=== PATIENT | male | born 1945 | race Hispanic/Latino ===

== ENCOUNTER 2017-11-02 11:19 | Inpatient (IN) | payer MEDICARE ==
--- NOTE | 2017-11-02 11:27 | EDPD ---
HPI Stroke - General Time Seen by Provider: 11/02/17 11:23 Historian: EMS - History of Present Illness Narrative History of Present Illness (Free Text): 11/02/17 11:20 A 72 year old male whose past medical history includes COPD, bipolar disorder, and EtOH abuse, is brought in by EMS and presents to the emergency department for possible CVA. Patient was last seen in normal state of health at approximately 09:30. Prior to arrival, patient's daughter had given him medications and later found him on the laundry room floor yelling for help. EMS states noticing patient experiencing right side gaze, right facial droop, and complete left side weakness. Noticed also patient was communicating in slurred speech. O2 SATs in the field were 89-90. Upon arrival here to the ER, patient was seen immediately and evaluated by me. PMD: Dr. Samy Herrera rTPA Inclusion/Exclusion - Refusal of Treatment Patient Refused Treatment: No - Inclusion Criteria for Altepase Patient is 18 years or Older: Yes The Clinical Diagnosis of Ischemic Stroke That is Causing a Potentially Disabling Neurological Deficit: Yes Time of Onset is Well Established to be Less Than 270 Minute Before Treatment Would Begin: Yes Risk/Benefit Discussed With Patient/Family Member Present: Yes - Exclusion Criteria for Altepase Uncontrolled Hypertension at Time of Treatment (Systolic BP above 185 or Diastolic BP above 110 mmHg): No Past Medical History - Provider Review Nursing Documentation Reviewed: Yes - Tetanus Immunization Tetanus Immunization: Unknown - Cardiac Hx Hypertension: Yes - Pulmonary Hx Respiratory Disorders: Yes - Neurological Hx Seizures: Yes - Hematological/Oncological Hx Cancer: Yes (lung) - Musculoskeletal/Rheumatological Hx Falls: Yes - Gastrointestinal Hx Gastrointestinal Disorders: No - Genitourinary/Gynecological Hx Reproductive Disorders: No - Psychiatric Hx Bipolar Disorder: Yes Hx Depression: No Hx Emotional Abuse: No Hx Physical Abuse: No Hx Substance Use: (UNKNOWN) Other/Comment: SMOKING HISTORY - Suicidal Assessment Feels Threatened In Home Enviroment: No Family/Social History - Family/Social History Family History: Non-Contributory Allergies/Home Meds Allergies/Adverse Reactions: Allergies No Known Allergies Allergy (Verified 11/28/12 14:08) Home Medications: Home Meds Medication Instructions Recorded Confirmed Gabapentin [Neurontin] 600 mg PO BID 11/02/17 11/02/17 LORazepam [Ativan] 1 mg PO HS 11/02/17 11/02/17 Quetiapine Fumarate [Seroquel] 100 mg PO HS 11/02/17 11/02/17 traZODone [trazodone Hydrochloride] 150 mg PO HS 11/02/17 11/02/17 ED Stroke Physical Exam Vital Signs Reviewed: Yes Temperature: Afebrile Blood Pressure: Hypertensive Pulse: Regular Respiratory Rate: Tachypneic Appearance: Positive for: Ill-Appearing, Uncomfortable Pain Distress: None Mental Status: No: Alert and Oriented X 3 (alert and oriented to person) - Systems Exam Head: Present: Atraumatic, Normocephalic Pupils: Present: PERRL. No: Pinpoint Extroacular Muscles: Present: EOMI, Gaze Palsy (right) Conjunctiva: Present: Normal Ears: Present: Normal, NORMAL TM Mouth: Present: Moist Mucous Membranes Pharnyx: Present: Normal Nose (External): Present: Atraumatic Nose (Internal): Present: Normal Inspection Neck: Present: Normal Range of Motion. No: MIDLINE TENDERNESS Respiratory/Chest: Present: Good Air Exchange, Respiratory Distress, Accessory Muscle Use, Wheezes (b/l) Cardiovascular: Present: Regular Rate and Rhythm, Normal S1, S2. No: Murmurs Abdomen: Present: Normal Bowel Sounds. No: Tenderness, Distention, Peritoneal Signs Back: Present: Normal Inspection Upper Extremity: Present: Normal Inspection, NORMAL PULSES. No: Edema Lower Extremity: Present: Normal Inspection, NORMAL PULSES, Other (patient is able to raise left lower leg, however drops it down immediately). No: Edema Neurologic: Present: Normal Sensory Function, Facial Droop (right-side), Dysmetric Finger to Nose (left), Dysmetric Heel to Chin (left). No: GCS=15, CN II-XII Intact, Speech Normal (slurred speech), Motor Func Grossly Intact (left upper 0/5; left lower 4/5) Skin: Present: Warm Psychiatric: Present: Alert Medical Decision Making ED Course and Treatment: 11/02/17 11:24 Impression: 72 year old male brought in by EMS for possible CVA. Physical exam shows patient is alert and oriented x 1 (person), right-side facial droop, right -side gaze, complete right-sided weakness, pupils equally reactive, 0/5 muscle strength to upper extremities Differential Diagnoses: CVA; Respiratory Distress r/o COPD vs CHF Plan: -- EKG -- Head CT -- Head/Neck CTA -- Chest X-Ray -- Stroke Team Consult -- Alteplase 62 mg -- Alteplase 7 mg -- IV Fluids -- Labs Progress Notes: 11/02/17 11:[address] Mar, whom recommends Head CT and Head/Neck CTA. tPA ordered immediately, and currently awaiting CT results. 11/02/17 11:[address] shows no bleed, no intracranial hemorrhage. 11/02/2017 12:02 Chest X-Ray IMPRESSION: There is a diffuse interstitial infiltrate. This could be secondary to CHF. There is also mid vascular congestion. Dictator: Oskar Rodriguez MD 11/02/2017 11:[address] IMPRESSION: No acute intracranial hemorrhage. Mild chronic white matter with scattered subcortical and bilateral cerebellar lacunar type infarcts. Note that the possibility of a small hyperacute infarct cannot be excluded on this study. Moderate generalized volume loss. Dictator: Jey Salgado DO 11/02/2017 12:10 Head/Neck CTA FINDINGS: There are partially calcified atherosclerotic plaque changes seen along the transverse portion of the aortic arch at and extending into the origins of the great vessels. Significant stenosis of the origin left common carotid artery. There is also plaque seen along the origin of the right subclavian artery which also results in mild mild-moderate narrowing. . Left common carotid artery is patent. Partially calcified atherosclerotic plaque seen at the bifurcation which also appears resulting [id number] narrowing estimated at approximately 40 %. . Minor partially calcified plaque right carotid bifurcation and proximal margin of the right internal carotid artery with estimated approximately 60 % diameter stenosis. There is also a mild partially calcified plaque seen at the petrous/ cavernous sinus junction segments and more distally within the cavernous segments. . The vertebral arteries are patent throughout left-sided which is slightly larger in caliber/ more dominant than the right. There is focal narrowing of the proximal basilar artery. The visualized major branches of the [place] and distal cerebral vessels are patent and symmetric. No evidence of large aneurysm nor vascular malformation. IMPRESSION: Fairly significant stenosis origin left common carotid artery with moderate stenosis of the origin of the right subclavian artery. The stenotic changes both common carotid artery is estimated at approximately 40 percent on the left and 60 percent on the right. There also mild partially calcified plaque changes both carotid siphons. . There is focal stenosis proximal basilar artery. No evidence of large aneurysm nor vascular malformation. Dictator: Jey Salgado DO 11/02/17 12:35 EKG shows NSR at 91 BPM, showing T-Wave Inversions in III, avF; no change from Case discussed with Dr. Juarez, ICU, whom will admit patient to ICU and recommends giving patient Lasix 40 mg. No IVF given. CXR with CHF patter which was reviewed by Dr. Juarez and I. Agreed Lasix for now and no antibiotics. Normal WBC. Case also discussed with Dr. Cole, whom will admit patient under his service and states to consult with Dr. Marrero (territory sales manager) and Dr. Santo ( neurology). 11/02/17 12:[address] Santo, neurologist, whom has been made aware of patient 's current medical condition and plan of treatment. 11/02/17 13:51 On reeval, lungs with less wheezing/rales; better air entry; good RR. BNP elevated. - Critical Care Critical Care Minutes: 60 minutes - Lab Interpretations I have reviewed the lab results: Yes - RAD Interpretation Radiology Orders: 11/02/17 11:24 CTA HEAD/NECK CODE STROKE [CT] Stat HEAD W/O (CODE STROKE) [CT] Stat CHEST PORTABLE [RAD] Stat - Scribe Statement The provider has reviewed the documentation as recorded by the Scribe Angie Hdz Provider Scribe Attestation: All medical record entries made by the Scribe were at my direction and personally dictated by me. I have reviewed the chart and agree that the record accurately reflects my personal performance of the history, physical exam, medical decision making, and the department course for this patient. I have also personally directed, reviewed, and agree with the discharge instructions and disposition. NIHSS Scale ([place]) Time Performed: 11:25 - How Severe is the Stoke Baseline Level of Consciousness: 0=Alert LOC to Questions: 0=Both comments correct LOC to commands: 0=Obeys both correctly Best Gaze: 2=Forced deviation Visual: 1=Partial hemianopia Facial: 2=Partial (lower face paralysis) Motor Arm - Left: 4=No movement Motor Arm - Right: 0=No drift Motor Leg - Left: 4=No movement Motor Leg - Right: 0=No drift Limb Ataxia: 2=Present both Sensory: 2=Severe to total loss Best Language: 1=Mild to moderate aphasia Dysarthia: 1=Mild to moderate slurring Extinction & Inattention (Neglect): 1=Partial neglect (mild josh-attention) Score: 20 Risk Level: Mod/Sev Stroke Risk Disposition/Present on Arrival - Present on Arrival Any Indicators Present on Arrival: No History of DVT/PE: No History of Uncontrolled Diabetes: No Urinary Catheter: No History Surgical Site Infection Following: None - Disposition Have Diagnosis and Disposition been Completed?: Yes Diagnosis: CVA (cerebral vascular accident), CHF (congestive heart failure) Disposition: HOSPITALIZED Disposition Time: 12:09 Patient Plan: Admission, ICU Condition: CRITICAL
[2017-11-02] MEDS ORDERED: Sodium Chloride 0.9% 1,000 ML IV SCH (11:30)
[2017-11-02 11:32] LABS: BASO # 0.06 K/mm3 (0.0-2.0); BASO % 0.5 % (0.0-3.0); EOS # 0.1 (0.0-0.7); EOS % 0.6 % (1.5-5.0); GRAN # 9.74 (1.4-6.5); GRAN % 86.7 % (50.0-68.0); HEMOGLOBIN 16.3 g/dL (14.0-18.0); LYMPH # 0.8 (1.2-3.4); LYMPH % 6.8 % (22.0-35.0); MEAN CELL VOLUME 96.7 fl (80.0-105.0); MEAN CORPUSCULAR HEMOGLOBIN 31.5 pg (25.0-35.0); MEAN CORPUSCULAR HGB CONC 32.5 g/dl (31.0-37.0); MEAN PLATELET VOLUME 9.3 fl (7.0-11.0); MONO # 0.6 (0.1-0.6); MONO % 5.4 % (1.0-6.0); RBC 5.18 10^6/uL (3.5-6.1); RED CELL DISTRIBUTION WIDTH 16.6 % (11.5-14.5); WHITE BLOOD COUNT 11.2 10^3/ul (4.5-11.0)
[2017-11-02 11:43] LABS: ALB/GLOB RATIO 1.1 (1.1-1.8); ALBUMIN 4.1 g/dL (3.0-4.8); ALT/SGPT 20 U/L (7-56); AST/SGOT 26 U/L (17-59); BLOOD UREA NITROGEN 14 mg/dL (7-21); CALCIUM 7.3 mg/dL (8.4-10.5); GFR AFRICAN-AMERICAN > 60; GFR NON-AFRICAN AMERICAN 55; HDL CHOLESTEROL 36 mg/dL (29-60)
[2017-11-02] MEDS: Albuterol-Ipratrop 3 mg / 0.5 (3 ml) UD IH SCH ×3 (11:45→12:29)
--- NOTE | 2017-11-02 11:46 | CT ---
PROCEDURE: CT HEAD WITHOUT CONTRAST. HISTORY: Code Stroke COMPARISON: Comparison made with CT scan brain dated 11/28/2012 TECHNIQUE: Axial computed tomography images were obtained through the head/brain without intravenous contrast. Radiation dose: Total exam DLP = 934.44 mGy-cm. This CT exam was performed using one or more of the following dose reduction techniques: Automated exposure control, adjustment of the mA and/or kV according to patient size, and/or use of iterative reconstruction technique. FINDINGS: HEMORRHAGE: No intracranial hemorrhage. BRAIN: Mild diffuse/ confluent chronic periventricular white matter ischemic changes are felt to be present. Additionally, there are a few scattered chronic appearing subcortical lacunar type infarct changes as well. . Probable tiny bilateral cerebellar chronic lacunar type infarcts. . Note that the possibility of a small hyperacute infarct cannot be excluded on this exam Moderate generalized volume loss Mild vascular calcifications both carotid siphons. VENTRICLES: No obstructive hydrocephalus. CALVARIUM: No acute calvarial fractures. . There appears to be a chronic right orbital floor fracture deformity. PARANASAL SINUSES: Minor mucosal thickening seen within the ethmoid air complex extending superiorly into the inferior margin of the frontal sinus. There is also minor mucosal thickening right maxillary antrum Changes. MASTOID AIR CELLS: Unremarkable as visualized. No inflammatory changes. OTHER FINDINGS: None. IMPRESSION: No acute intracranial hemorrhage. Mild chronic white matter with scattered subcortical and bilateral cerebellar lacunar type infarcts. Note that the possibility of a small hyperacute infarct cannot be excluded on this study. Moderate generalized volume loss.
[2017-11-02 11:48] LABS: INR 1.17 (0.93-1.08); PARTIAL THROMBOPLASTIN TIME 27.5 Seconds (25.1-36.5); PROTHROMBIN TIME 13.5 SECONDS (9.4-12.5)
[2017-11-02 11:54] LABS: LDL CHOLESTEROL 116 mg/dL (0-129)
--- NOTE | 2017-11-02 12:04 | RAD ---
PROCEDURE: CHEST RADIOGRAPH, 1 VIEW HISTORY: Code Stroke COMPARISON: 11/28/2012 FINDINGS: LUNGS: There is a diffuse interstitial infiltrate. This could be secondary to CHF. There is also mild vascular congestion PLEURA: No pneumothorax or pleural fluid seen. CARDIOVASCULAR: Normal. OSSEOUS STRUCTURES: No significant abnormalities. VISUALIZED UPPER ABDOMEN: Normal. OTHER FINDINGS: None. IMPRESSION: There is a diffuse interstitial infiltrate. This could be secondary to CHF. There is also mild vascular congestion
[2017-11-02 12:06] LABS: TROPONIN I 0.22 ng/mL
--- NOTE | 2017-11-02 12:08 | CP.PCM.CON ---
History of Present Illness - History of Present Illness History of Present Illness: PGY2 Neuro Consult note for Dr. Mar Reason for consult: acute CVA Please note history as per daughter Vianey Broussard 72yo male PMHx lung ca s/p lobectomy COPD, bipolar, tobacco use, alcoholism, TIA presents for AMS since this AM. Patient's daughter reports she last saw him at baseline around 8:30am when she gave him his breakfast and medications. After that around 10-10:30am patient's daughter heard him calling for her and she found him in the laundry room, face down, with his left arm underneath him and his right arm in front of him. Patient was able to talk and answering questions appropriately at that time. He knew who his daughter was and who he was and was asking his daughter to help him get to the couch. He was unable to walk but had no other complaints. Patient's daughter states that she felt his color was nava and immediately called EMS and patient was [facility] [facility]. PMHx: lung ca s/p lobectomy, COPD, bipolar, tobacco use, alcoholism, TIA PSurgHx: lobectomy [daughter unsure which lung] Meds: pls see chart- patient's daughter reports he is compliant ALL: NKDA SocHx: quit tobacco 8 years ago- used to smoke 1.5-2ppd since he was in his teens; used to drink EtOH heavily for 30 years and quit 8 years ago. Son 2 weeks ago suddenly [cause unknown awaiting autopsy] and his of breast ca in 2005. Patient lives in the same building as his daughter. FamHx: elan any hx of CVA, [place], cancer in family PMD: Dr. Herrera Review of Systems - Review of Systems Systems not reviewed;Unavailable: Acuity of Condition (history as per daughter at bedside) Past Patient History - Infectious Disease Hx of Infectious Diseases: None - Tetanus Immunizations Tetanus Immunization: Unknown - Past Social History Smoking Status: Former Smoker - CARDIAC Hx Hypertension: Yes - PULMONARY Hx Respiratory Disorders: Yes - NEUROLOGICAL Hx Seizures: Yes - HEMATOLOGICAL/ONCOLOGICAL Hx Cancer: Yes (lung) - MUSCULOSKELETAL/RHEUMATOLOGICAL Hx Falls: Yes - GASTROINTESTINAL Hx Gastrointestinal Disorders: No - GENITOURINARY/GYNECOLOGICAL Hx Reproductive Disorders: No - PSYCHIATRIC Hx Bipolar Disorder: Yes Hx Depression: No Hx Emotional Abuse: No Hx Physical Abuse: No Hx Substance Use: (UNKNOWN) Other/Comment: SMOKING HISTORY - SURGICAL HISTORY Other/Comment: lobectomy ,lung ca - ANESTHESIA Hx Anesthesia Reactions: No Meds Allergies/Adverse Reactions: Allergies Allergy/AdvReac Type Severity Reaction Status Date / Time No Known Allergies Allergy Verified 11/28/12 14:08 - Medications Medications: Current Medications Albuterol/Ipratropium (Duoneb 3 Mg/0.5 Mg (3 Ml) Ud) 3 ml IH Q15M MARCELLA Stop: 11/02/17 12:16 Sodium Chloride (Sodium Chloride 0.9%) 1,000 mls @ 100 mls/hr IV .Q10H MARCELLA Physical Exam - Constitutional Appears: In Acute Distress - Head Exam Head Exam: ATRAUMATIC, NORMAL INSPECTION, NORMOCEPHALIC - Eye Exam Eye Exam: PERRL. absent: Conjunctival injection, Scleral icterus Pupil Exam: NORMAL ACCOMODATION, PERRL - ENT Exam ENT Exam: Mucous Membranes Dry - Respiratory Exam Respiratory Exam: Wheezes, NORMAL BREATHING PATTERN. absent: Accessory Muscle Use - Cardiovascular Exam Cardiovascular Exam: REGULAR RHYTHM, +S1, +S2 - GI/Abdominal Exam GI & Abdominal Exam: Normal Bowel Sounds, Soft - Extremities Exam Extremities exam: Positive for: normal capillary refill, normal inspection, pedal pulses present. Negative for: pedal edema - Neurological Exam Neurological exam: Alert Additional comments: L facial droop LUE and LLE weakness - Expanded Neurological Exam Expanded Neurological exam: Protecting the Airway Patient oriented to: person, place, time Speech: Slurred Speech Cranial nerves: Facial Sensation: Normal, Nystagmus: Normal Coma Scale Eye Opening: SPONTANEOUS Coma Scale Motor Response: OBEYS COMMANDS Coma Scale Verbal: Oriented Coma Scale Total: 15 - Skin Skin Exam: Dry, Intact, Normal Color, Warm Results - Vital Signs Recent Vital Signs: Last Vital Signs Temp 98.5 F 11/02/17 12:00 Pulse 87 11/02/17 12:00 Resp 18 11/02/17 12:00 BP 146/82 11/02/17 12:00 Pulse Ox 91 L 11/02/17 12:00 - Labs Result Diagrams: 11/02/17 11:25 11/02/17 11:25 Labs: Laboratory Results - last 24 hr 11/02/17 11/02/1718 11:25 11:25 11:25 WBC 11.2 H RBC 5.18 Hgb 16.3 Hct 50.1 MCV 96.7 MCH 31.5 MCHC 32.5 RDW 16.6 H Plt Count 252 MPV 9.3 Gran % 86.7 H Lymph % (Auto) 6.8 L Leake % (Auto) 5.4 Eos % (Auto) 0.6 L Baso % (Auto) 0.5 Gran # 9.74 H Lymph # (Auto) 0.8 L Leake # (Auto) 0.6 Eos # (Auto) 0.1 Baso # (Auto) 0.06 PT 13.5 H INR 1.17 H APTT 27.5 Sodium 141 Potassium 4.1 Chloride 101 Carbon Dioxide 23 Anion Gap 22 H BUN 14 Creatinine 1.3 Est GFR ( Amer) > 60 Est GFR (Non-Af Amer) 55 Random Glucose 169 H Calcium 7.3 L Total Bilirubin 0.7 AST 26 ALT 20 Alkaline Phosphatase 126 Troponin I 0.22 H* Total Protein 7.9 Albumin 4.1 Globulin 3.8 Albumin/Globulin Ratio 1.1 Triglycerides 113 Cholesterol 171 LDL Cholesterol Direct 116 HDL Cholesterol 36 BBK History Checked 11/02/17 11:25 WBC RBC Hgb Hct MCV MCH MCHC RDW Plt Count MPV Gran % Lymph % (Auto) Leake % (Auto) Eos % (Auto) Baso % (Auto) Gran # Lymph # (Auto) Leake # (Auto) Eos # (Auto) Baso # (Auto) PT INR APTT Sodium Potassium Chloride Carbon Dioxide Anion Gap BUN Creatinine Est GFR ( Amer) Est GFR (Non-Af Amer) Random Glucose Calcium Total Bilirubin AST ALT Alkaline Phosphatase Troponin I Total Protein Albumin Globulin Albumin/Globulin Ratio Triglycerides Cholesterol LDL Cholesterol Direct HDL Cholesterol BBK History Checked No verified bt Assessment & Plan - Assessment and Plan (Free Text) Assessment: 72yo male PMHx COPD, bipolar, tobacco use, alcoholism, TIA presents for AMS since this AM. Code stroke called in the ED and patient had NIHSS 12. Head CT showed no acute hemorrhage and patient was started on tPA. Plan: -Admit patient to ICU -Monitor closely for any signs of bleeding and no lab draws for 24 hours -Maintain BP <185/105mmHg and check BP every 15 minutes -repeat Head CT in 24hours -MRI/MRA brain in AM -HOLD ASA -Lipitor -Head CT: No acute intracranial hemorrhage. Mild chronic white matter with scattered subcortical and bilateral cerebellar lacunar type infarcts. Note that the possibility of a small hyperacute infarct cannot be excluded on this study. Moderate generalized volume loss. -CTA head/neck: Fairly significant stenosis origin left common carotid artery with moderate stenosis of the origin of the right subclavian artery. The stenotic changes both common carotid artery is estimated at approximately 40 percent on the left and 60 percent on the right. There also mild partially calcified plaque changes both carotid siphons. . There is focal stenosis proximal basilar artery. No evidence of large aneurysm nor vascular malformation. -Aspiration precautions -HoB above 30 degrees -Neuro check -NPO -Speech/Swallow eval -PT/OT -GI ppx and SCDs Discussed with Dr. Isabela Stephenson PGY2
--- NOTE | 2017-11-02 12:12 | CT ---
PROCEDURE: CT Angiography of the neck and brain dated 11/02/2017 HISTORY: CVA COMPARISON: Comparison made with concurrent noncontrast CT scan brain TECHNIQUE: Contiguous helical/transaxial images of the neck were obtained from the level of the skull-base to the superior mediastinum in the arteriographic phase of enhancement. Coronal and sagittal reformats or also generated. IV contrast dose: Omnipaque 350 contrast material. Radiation Dose - DLP: 528.67 mGy-cm This CT exam was performed using one or more of the following dose reduction techniques: Automated exposure control, adjustment of the mA and/or kV according to patient size, and/or use of iterative reconstruction technique. . Note that study is somewhat limited due to motion artifact which partially obscures on images at the level of the bifurcations. Streak artifact arising from dental amalgam as well as other cardiac monitoring hardware also partially obscuring detail. FINDINGS: There are partially calcified atherosclerotic plaque changes seen along the transverse portion of the aortic arch at and extending into the origins of the great vessels. Significant stenosis of the origin left common carotid artery. There is also plaque seen along the origin of the right subclavian artery which also results in mild mild-moderate narrowing. . Left common carotid artery is patent. Partially calcified atherosclerotic plaque seen at the bifurcation which also appears resulting [id number] narrowing estimated at approximately 40 %. . Minor partially calcified plaque right carotid bifurcation and proximal margin of the right internal carotid artery with estimated approximately 60 % diameter stenosis. There is also a mild partially calcified plaque seen at the petrous/ cavernous sinus junction segments and more distally within the cavernous segments. . The vertebral arteries are patent throughout left-sided which is slightly larger in caliber/ more dominant than the right. There is focal narrowing of the proximal basilar artery. The visualized major branches of the [place] and distal cerebral vessels are patent and symmetric. No evidence of large aneurysm nor vascular malformation. IMPRESSION: Fairly significant stenosis origin left common carotid artery with moderate stenosis of the origin of the right subclavian artery. The stenotic changes both common carotid artery is estimated at approximately 40 percent on the left and 60 percent on the right. There also mild partially calcified plaque changes both carotid siphons. . There is focal stenosis proximal basilar artery. No evidence of large aneurysm nor vascular malformation.
--- NOTE | 2017-11-02 12:38 | CP.PCM.CON ---
History of Present Illness - History of Present Illness History of Present Illness: MICU Consult Note Patient is 72yo male with PMHx of Lung Ca s/p Lobectomy, etoh abuse, former smoker, HTN, midl dementia, presents from after being found down on the floor. History provided by daughter, Vianey Broussard, who is at bedside. As per the daughter, patient was downstairs doing his laundry, when yelled for help and was found down on the floor. Brought in by EMS found to have facial droop and LUE/LLE weakness, given tPA. Currently afebrile, HD stable, in mild resp distress, sat 94% on 2LNC. Neurology consulted and at bedside PMHx as above PSHx as above Meds as per EMR ROS as above FHx NC Social former etoh abuse, former smoker, retired Review of Systems - Review of Systems Review of Systems: as per HPI Past Patient History - Infectious Disease Hx of Infectious Diseases: None - Tetanus Immunizations Tetanus Immunization: Unknown - Past Social History Smoking Status: Former Smoker - CARDIAC Hx Hypertension: Yes - PULMONARY Hx Respiratory Disorders: Yes - NEUROLOGICAL Hx Seizures: Yes - HEMATOLOGICAL/ONCOLOGICAL Hx Cancer: Yes (lung) - MUSCULOSKELETAL/RHEUMATOLOGICAL Hx Falls: Yes - GASTROINTESTINAL Hx Gastrointestinal Disorders: No - GENITOURINARY/GYNECOLOGICAL Hx Reproductive Disorders: No - PSYCHIATRIC Hx Bipolar Disorder: Yes Hx Depression: No Hx Emotional Abuse: No Hx Physical Abuse: No Hx Substance Use: (UNKNOWN) Other/Comment: SMOKING HISTORY - SURGICAL HISTORY Other/Comment: lobectomy ,lung ca - ANESTHESIA Hx Anesthesia Reactions: No Meds Allergies/Adverse Reactions: Allergies Allergy/AdvReac Type Severity Reaction Status Date / Time No Known Allergies Allergy Verified 11/28/12 14:08 - Medications Medications: Current Medications Sodium Chloride (Sodium Chloride 0.9%) 1,000 mls @ 100 mls/hr IV .Q10H MARCELLA Physical Exam - Constitutional Appears: Non-toxic - Eye Exam Eye Exam: Normal appearance - ENT Exam ENT Exam: Mucous Membranes Moist - Respiratory Exam Respiratory Exam: Rales, Wheezes, NORMAL BREATHING PATTERN - Cardiovascular Exam Cardiovascular Exam: REGULAR RHYTHM, +S1, +S2 - GI/Abdominal Exam GI & Abdominal Exam: Normal Bowel Sounds, Soft - Extremities Exam Extremities exam: Positive for: pedal edema - Neurological Exam Neurological exam: Alert Additional comments: RUE/RLE 4/5 LUE/LLE 3/5, facial asymetry Results - Vital Signs Recent Vital Signs: Last Vital Signs Temp 98.5 F 11/02/17 12:00 Pulse 88 11/02/17 12:15 Resp 18 11/02/17 12:15 BP 154/81 H 11/02/17 12:15 Pulse Ox 91 L 11/02/17 12:00 - Labs Result Diagrams: 11/02/17 11:25 11/02/17 11:25 Labs: Laboratory Results - last 24 hr 11/02/17 11/02/17 11/02/17 11:25 11:25 11:25 WBC 11.2 H RBC 5.18 Hgb 16.3 Hct 50.1 MCV 96.7 MCH 31.5 MCHC 32.5 RDW 16.6 H Plt Count 252 MPV 9.3 Gran % 86.7 H Lymph % (Auto) 6.8 L [place] % (Auto) 5.4 Eos % (Auto) 0.6 L Baso % (Auto) 0.5 Gran # 9.74 H Lymph # (Auto) 0.8 L [place] # (Auto) 0.6 Eos # (Auto) 0.1 Baso # (Auto) 0.06 PT 13.5 H INR 1.17 H APTT 27.5 Sodium 141 Potassium 4.1 Chloride 101 Carbon Dioxide 23 Anion Gap 22 H BUN 14 Creatinine 1.3 Est GFR ( Amer) > 60 Est GFR (Non-Af Amer) 55 Random Glucose 169 H Calcium 7.3 L Total Bilirubin 0.7 AST 26 ALT 20 Alkaline Phosphatase 126 Troponin I 0.22 H* Total Protein 7.9 Albumin 4.1 Globulin 3.8 Albumin/Globulin Ratio 1.1 Triglycerides 113 Cholesterol 171 LDL Cholesterol Direct 116 HDL Cholesterol 36 BBK History Checked 11/02/17 11:25 WBC RBC Hgb Hct MCV MCH MCHC RDW Plt Count MPV Gran % Lymph % (Auto) [place] % (Auto) Eos % (Auto) Baso % (Auto) Gran # Lymph # (Auto) [place] # (Auto) Eos # (Auto) Baso # (Auto) PT INR APTT Sodium Potassium Chloride Carbon Dioxide Anion Gap BUN Creatinine Est GFR ( Amer) Est GFR (Non-Af Amer) Random Glucose Calcium Total Bilirubin AST ALT Alkaline Phosphatase Troponin I Total Protein Albumin Globulin Albumin/Globulin Ratio Triglycerides Cholesterol LDL Cholesterol Direct HDL Cholesterol BBK History Checked No verified bt - Imaging and Cardiology Chest x-ray Status: Image reviewed by me, Report reviewed by me Assessment & Plan - Assessment and Plan (Free Text) Assessment: 72yo male a/w acute CVA, receiving tPA Acute CVA SOB COPD CHF exacerbation - currently afebrile, HD stable, in mild resp distress, sat 94% on 2LNC, receiving tPA - CT head negative for acute pathology - CXR with diffuse interstial markings likely component of CHF RECOMMEND: - supp o2 as needed, goal sat 90% - duonebs q4hr PRN - Pulmicort 0.25mg BID - Solumedrol 40mg IV q8hr - Lasix 40mg IV BID - ECHO - Cardiology eval - NPO - no lab draws for 24h - HOLD ASA - Statin - follow up neuro - MRI/MRA - monitor - control - GI ppx - DVT ppx, SCDs - Admit to MICU Critical care time 35 minutes
--- NOTE | 2017-11-02 15:52 | RAD ---
PROCEDURE: Radiographs of the Left Forearm HISTORY: fall COMPARISON: None available. TECHNIQUE: Frontal and lateral views obtained. FINDINGS: BONES: No fracture or destructive lesion. JOINT SPACES: Unremarkable. OTHER FINDINGS: None. IMPRESSION: Unremarkable radiographs of the left forearm.
--- NOTE | 2017-11-02 15:59 | RAD ---
PROCEDURE: Left Hand Radiographs. HISTORY: fall COMPARISON: None. FINDINGS: BONES: There is a minimally displaced fracture of the 5th proximal phalanx JOINTS: Normal. No osteoarthritic changes. SOFT TISSUES: Normal. OTHER FINDINGS: None. IMPRESSION: There is a minimally displaced fracture of the 5th proximal phalanx
[2017-11-02] MEDS: Nystatin 100,000 Units/gm Topical Pow(15 gm) TOP SCH (16:31)
--- NOTE | 2017-11-02 19:05 | CP.PCM.PCO ---
Physician Communication Note - Physician Communication Note Physician Communication Note: Dr. Landrum unable to accept the patient, no referral has been made.
--- NOTE | 2017-11-02 19:11 | CON ---
DATE: 11/02/2017 NEUROLOGY CONSULT CHIEF COMPLAINT: Left-sided weakness. HISTORY OF PRESENT ILLNESS: This is a 72-year-old man with history of lung cancer, status post lobectomy, EtOH abuse, former smoker, hypertension, mild cognitive impairment, who has been found down on the floor. History was provided by his daughter, Vianey who was at bedside. Apparently, the patient was doing laundry downstairs when he yelled down the floor. He was found to have left facial droop and left upper and lower extremity weakness. He was brought to the ER. He was within the requirements of tPA. His CT of the head showed no acute intracranial abnormality. He was given tPA without any contraindications. His CT angio of the head was also done, which showed a significant stenosis on the marginal left common carotid with moderate stenosis of the right subclavian artery, stenotic changes in both common carotids estimated 40% on the left and 60% on the right and focal stenosis on the proximal basilar artery. No evidence of any large aneurysm or vascular malformation. His MRI of the brain is pending. Currently, he is in the ICU, on BiPAP, has elevated BNP of more than 6000 and positive troponin, could be secondary to NSTEMI versus acute infarct. He is following simple commands. His left upper extremity is weaker than his left lower. Toes are upgoing bilaterally. Sensory exam, withdraws to localized and noxious stimulus. PAST MEDICAL HISTORY: History of lung cancer, status post lobectomy, hypertension, and cognitive impairment. PAST SURGICAL HISTORY: Status post lobectomy for lung CA. MEDICATIONS: Reviewed by nurse per reconciliation sheet. REVIEW OF SYSTEMS: Fourteen-point review of systems is negative except per the HPI. FAMILY HISTORY: Noncontributory. SOCIAL HISTORY: Former EtOH abuse, former smoker, retired. LABORATORY DATA: Sodium is 141, potassium 4.1, chloride 101, carbon dioxide 23. BUN of 14, creatinine 1.3. Random glucose 169. A1c 6.4. Troponin is 0.22. BNP is 6520. PHYSICAL EXAMINATION: VITAL SIGNS: Temperature afebrile, pulse rate is 75, blood pressure 142/75, respiratory rate of 19, oxygen saturation 91% via nasal cannula. GENERAL: Patient is lethargic . HEENT: Head is atraumatic, normocephalic. PERRLA. Extraocular muscles intact. NECK: Supple. No JVD. No adenopathy noted. LUNGS: Clear to auscultation. No adventitious sounds. HEART: S1, S2. Normal rate and rhythm. No murmurs, rubs, or gallops. ABDOMEN: Soft, nontender, nondistended. Bowel sounds are present. EXTREMITIES: No clubbing, no cyanosis. Peripheral pulses are 2+ felt bilaterally. NEUROLOGIC: The patient is drowsy, but alert and oriented to person, follow simple commands. Speech is slightly dysarthric. Cranial nerves II through XII intact except for mild left facial droop. Motor exam: Left upper extremity 4+/5 and left lower extremity 5-/5. In terms of strength, right side is intact. Toes are upgoing bilaterally. Sensory exam: Light touch, pinprick, proprioception, and vibration intact. DTRs are 2+ throughout. Withdraws to localized and noxious stimulus. Coordination: [id number] intact on the right, mild difficulty with left upper extremity weakness. DTRs are 2+ throughout, 1 at ankles. Gait is deferred for now. ASSESSMENT AND PLAN: This is a 72-year-old man with past medical history of lung cancer, status post lobectomy, hypertension, dyslipidemia, history of ethyl alcohol abuse and former smoker, who comes in with acute onset of mild left facial droop, left-sided weakness with status post tPA due to that he was in the time window without any contraindications. His CT head showed no acute intracranial abnormalities, just chronic ischemic changes and CT angio of the head and neck showed overall stenotic change in both common carotids, 40% on the left and 60% on the right with some more focal stenosis of the proximal basilar artery. No evidence of any larger aneurysm or vascular malformation. He also has elevated BNP and congestive heart failure exacerbation. His cerebrovascular accident could be secondary to diffuse atherosclerotic disease. At this time recommend: 1. Since he is status post tPA, wait 24 hours before introducing antiplatelet medications. 2. MRI of the brain to assess the location of the infarct. 3. A 2D echo. 4. PT and OT evaluation, speech therapy. 5. Acute progressive hypertension for 24 hours and after can reduce to a goal of systolic blood pressure of 130s to 140s and diastolic of 70s to 80s, and continue current present medical management. We will likely need rehab evaluation. Ty Santo MD
[2017-11-02 19:43] VITALS: BMI 27.4
[2017-11-02] MEDS ORDERED: Pneumococcal 23-Valent Vaccine IM ONE (19:43)
[2017-11-02] MEDS: MethylPREDNISolone 40 mg Vial IVP SCH (21:08)
--- NOTE | 2017-11-03 07:08 | CP.PCM.PN ---
Objective - Vital Signs/Intake and Output Vital Signs (last 24 hours): Temp Pulse Resp BP Pulse Ox 99.2 F 69 17 149/81 95 11/02/17 23:28 11/03/17 06:15 11/03/17 06:15 11/03/17 06:00 11/03/17 06:15 Intake and Output: 11/03/17 11/03/17 06:59 18:59 Intake Total 0 Output Total 1300 Balance -1300 - Medications Medications: Current Medications Furosemide (Lasix) 40 mg IVP Q12H MARCELLA Last Admin: 11/02/17 21:09 Dose: 40 mg Methylprednisolone (Solu-Medrol) 40 mg IVP Q12 MARCELLA Last Admin: 11/02/17 21:08 Dose: 40 mg Nystatin (Nystop Topical Powder) 0 gm TOP BID MARCELLA Last Admin: 11/02/17 16:31 Dose: 1 applic - Labs Labs: PT 13.5 SECONDS (9.4-12.5) H 11/02/17 11:25 INR 1.17 (0.93-1.08) H 11/02/17 11:25 APTT 27.5 Seconds (25.1-36.5) 11/02/17 11:25
--- NOTE | 2017-11-03 08:16 | CARD ---
APPROVED REPORT EKG Measurement Heart [id number] <Conclusion> Normal sinus rhythm PRWP V 1 - 6 RVCD LAD STTW changes c/w ischemia
--- NOTE | 2017-11-03 08:22 | PCM.STROKE ---
Interval History Critical Care Time Spent (in minutes): 45 Stroke Date: 11/02/17 Additional history per family/caregiver (name): Vianey [daughter] No other interval changes in current, PMHx, FHx, SocHx, ROS: other than on note by: (Dr. Keyla Stephenson PGY2) - Treatment DVT Prophylaxis: Sequential compression device in place bilaterally - Education Written Stroke Education provided regarding: personal risk factors, stroke warning sign/symptoms, how to activate emergency medical services, need to follow up after discharge Hx Atrial Fibrillation: No Hx Atrial Flutter: No NIHSS Stroke Scale - Date/Time Evaluation Performed Date Performed: 11/03/17 Time Performed: 08:00 When Was NIHSS Performed: Post tPA - How Severe is the Stroke Level of Consciousness: 0=Alert LOC to Questions: 0=Both comments correct LOC to commands: 0=Obeys both correctly Best Gaze: 0=Normal Visual: 0=No visual loss Facial: 2=Partial (lower face paralysis) Motor Arm - Left: 1=Drift noted before 10 sec Motor Arm - Right: 0=No drift Motor Leg - Left: 1=Drift before 5 sec Motor Leg - Right: 0=No drift Limb Ataxia: 1=Present Upper or Lower Sensory: 0=Normal Best Language: 0=No aphasia Dysarthia: 1=Mild to moderate slurring Extinction & Inattention (Neglect): 1=Partial neglect (mild josh-attention) Score: 7 Exam - Vital Sign Vital Signs: Temp Pulse Resp BP Pulse Ox 99.2 F 69 17 149/81 95 11/02/17 23:28 11/03/17 06:15 11/03/17 06:15 11/03/17 06:00 11/03/17 06:15 Constitutional: No distress, Normal appearing Right Pupil: Reactive Left Pupil: Reactive Cardiovascular: Regular rate & rhythm Mental Status: Normal: Orientation (ao x 3) Neuro motor strength exam: Left Upper Extremity: 3, Right Upper Extremity: 4, Left Lower Extremity: 3, Right Lower Extremity: 4 Vascular Risk: Age (ao x 3), Smoking - Data reviewed Laboratory results: Triglycerides 107 mg/dL (35-160) 11/03/17 07:30 Cholesterol 188 mg/dL (130-200) 11/03/17 07:30 LDL Cholesterol Direct 133 mg/dL (0-129) H 11/03/17 07:30 HDL Cholesterol 40 mg/dL (29-60) 11/03/17 07:30 Hemoglobin A1c 6.4 % (4.2-6.5) 11/02/17 11:25 Assessment and Plan - Assessment and Plan (Free Text) Assessment: 72yo male PMHx COPD, bipolar, tobacco use, alcoholism, TIA presents for AMS since this AM. Code stroke called in the ED and patient had NIHSS 12. Head CT showed no acute hemorrhage and patient was started on tPA and transferred to MICU. Plan: -repeat head CT at 21:00 to monitor bleed -Head CT this AM: large hemorrhagic infarct in R frontal lobe -MRI Brain showed large hemorrhagic infarct in the right frontal lobe -Head/Neck MRA showed no evidence of occlusion or high grade stenosis -Echo with bubble study ordered- f/u -Head CT on admission: No acute intracranial hemorrhage. Mild chronic white matter with scattered subcortical and bilateral cerebellar lacunar type infarcts. Note that the possibility of a small hyperacute infarct cannot be excluded on this study. Moderate generalized volume loss. -CTA head/neck on admission: Fairly significant stenosis origin left common carotid artery with moderate stenosis of the origin of the right subclavian artery. The stenotic changes both common carotid artery is estimated at approximately 40 percent on the left and 60 percent on the right. There also mild partially calcified plaque changes both carotid siphons. There is focal stenosis proximal basilar artery. No evidence of large aneurysm nor vascular malformation. -Cardene gtt -Maintain SBP 140-160 due to new hemorrhagic CVA -Aspiration precautions -HoB above 45 degrees -Neuro checks -NPO -Speech/Swallow eval -PT/OT -GI ppx and SCDs -Neurosurgery consult Discussed with Dr. Isabela Stephenson PGY2
[2017-11-03 08:30] LABS: TROPONIN I 0.27 ng/mL
[2017-11-03 08:59] LABS: CK-MB 4.5 ng/mL (0.0-3.6)
--- NOTE | 2017-11-03 09:21 | PN ---
DATE: 11/03/2017 SUBJECTIVE: The patient is seen and examined at the bedside. He is comfortable. He talks full sentences. His night was uneventful. He reports that he is subjectively feeling better in terms of his breathing and in terms of muscle strength in both upper and lower extremity. PHYSICAL EXAMINATION: VITAL SIGNS: Heart rate 69, blood pressure 149/81, respiratory rate 17, oxygen saturation 95% on 2 L nasal cannula. ENT: Head and neck atraumatic. LUNGS: Clear to auscultation bilaterally. HEART: Regular rate and rhythm. S1 and S2 normal. ABDOMEN: Soft, nontender and nondistended. MUSCULOSKELETAL: No C/C/E. NEURO: 5/5 right upper and lower extremity, 3/5 (substantial improvement compared with yesterday), left upper and lower extremities. The patient has substantial asymmetry in his base with flattening of the left nasolabial fold. Inability to frown his left brow. Inability to shrug his left shoulder. Deviation of the tongue to the right. SKIN: Moist. PSYCH: The patient is alert, awake and oriented x3. Normal affect. LABORATORY DATA: WBC 11.2, hemoglobin 16.3, platelet count 252. Sodium 141, potassium 4.1, chloride 101, carbon dioxide 23, BUN 14, creatinine 1.3. Hemoglobin A1c 6.4. Troponin 0.22. ProBNP is 6520. LDL 116, HDL 36. INR 1.17. MEDICATIONS: Lasix 40 mg IV every 12, Solu-Medrol 40 mg IV every 12, nystatin. CT of the head and neck revealed fairly significant stenosis, origin left common carotid artery with moderate stenosis of the origin of the right subclavian artery. The stenotic changes of both common carotid artery are estimated at approximately 40% on the left and 60% on the right. There are also mild partially calcified plaque changes, both carotid siphons. There is a focal stenosis, proximal basilar artery. No evidence of large aneurysm. No vascular malformation. Head CT was showing no acute intracranial hemorrhage. ASSESSMENT AND PLAN: This is a 72-year-old gentleman, who presented with acute right middle cerebral artery stroke, status post tissue plasminogen activator with subsequent substantial improvement. The patient received tissue plasminogen activator and currently in the Intensive Care Unit for post tPA care. We will maintain blood pressure below 180/100. We will maintain euvolemia, euglycemia, normothermia and oxygen saturation more than 90%. Neurology is following the patient as well. The patient will get MRI and MRA of the head and neck today. Echocardiogram, carotid Doppler, swallow evaluation, physical therapy, occupational therapy evaluation will also be done. Once passed the swallow evaluation, the patient will be allowed to eat and drink. However, if he fails swallow evaluation, he will remain n.p.o. We will continue with deep venous thrombosis and gastrointestinal prophylaxis. Aspiration precaution. Head of bed elevated more 35 degrees. ccm time 40 min Shukri Andre MD MTDSkyler
--- NOTE | 2017-11-03 11:15 | MRI ---
PROCEDURE: Magnetic Resonance Angiography Brain HISTORY: CVA s/p tPA COMPARISON: None available. TECHNIQUE: 3D time of flight MR angiography of the intracranial arteries was performed. Rotating maximum intensity projection images were generated. FINDINGS: INTERNAL CAROTID ARTERIES: Flow signal is seen in both internal carotid arteries. ANTERIOR CEREBRAL ARTERIES: Not visible due to motion artifact MIDDLE CEREBRAL ARTERIES: Not visible due to motion artifact POSTERIOR CIRCULATION: Basilar Artery: Unremarkable. ANEURYSM/ VASCULAR MALFORMATIONS: None. OTHER FINDINGS: None. IMPRESSION: Nondiagnostic study due to motion artifact.
[2017-11-03] MEDS: MethylPREDNISolone 40 mg Vial IVP SCH ×2 (11:16→21:22)
--- NOTE | 2017-11-03 11:17 | MRI ---
PROCEDURE: MR angiography of the neck without contrast HISTORY: CVA s/p tPA COMPARISON: TECHNIQUE: MR angiography of the neck was performed using [id number] techniques. FINDINGS: The study is extremely limited by motion artifact. There is no obvious occlusion of the carotid arteries. There is no critical stenosis visualize. The vertebral and basilar arteries are also patent. IMPRESSION: Study limited by motion artifact. No evidence of occlusion or high-grade stenosis
[2017-11-03] MEDS: Nystatin 100,000 Units/gm Topical Pow(15 gm) TOP SCH ×2 (11:18→18:12)
[2017-11-03] MEDS ORDERED: Nicardipine 20 MG/200 ML 20 MG/200 ML BAG IV PRN (11:21)
--- NOTE | 2017-11-03 11:26 | MRI ---
PROCEDURE: MRI BRAIN WITHOUT CONTRAST HISTORY: CVA s/p tPA COMPARISON: None. TECHNIQUE: Multiplanar, multisequence MR images of the brain were obtained without intravenous contrast enhancement. FINDINGS: HEMORRHAGE: There is a large hemorrhagic infarct in the right frontal lobe measuring 35 x 58 mm. The hemorrhage extends to the cortical surface and there is also some associated subarachnoid hemorrhage. There is no midline shift DWI: There is restricted diffusion around the areas of hemorrhage consistent with an acute infarct BRAIN PARENCHYMA: As above there is mass effect with effacement of the sulci on the right but no evidence of midline shift VENTRICLES: Unremarkable. No hydrocephalus. CRANIUM: Unremarkable. ORBITS: Grossly unremarkable. PARANASAL SINUSES/MASTOIDS: Clear VASCULAR SYSTEM: Skull base flow voids intact. OTHER FINDINGS: The findings were called to the ICU. I spoke to Amanda the patient's nurse at 11:15 a.m. IMPRESSION: Large hemorrhagic infarct in the right frontal lobe
--- NOTE | 2017-11-03 11:28 | CT ---
PROCEDURE: CT HEAD WITHOUT CONTRAST. HISTORY: CVA s/p TPA - monitor 24 hrs after tPA COMPARISON: MRI same day TECHNIQUE: Axial computed tomography images were obtained through the head/brain without intravenous contrast. Radiation dose: Total exam DLP = 849 mGy-cm. This CT exam was performed using one or more of the following dose reduction techniques: Automated exposure control, adjustment of the mA and/or kV according to patient size, and/or use of iterative reconstruction technique. FINDINGS: HEMORRHAGE: There is a large hemorrhagic infarct in the right frontal lobe. The hemorrhage extends to the cortical surface and there is a small amount of associated subarachnoid blood which can be seen in the parietal sulci bilaterally. BRAIN: There is mass effect with sulcal effacement but no midline shift. VENTRICLES: Unremarkable. No hydrocephalus. CALVARIUM: Unremarkable. PARANASAL SINUSES: Unremarkable as visualized. No significant inflammatory changes. MASTOID AIR CELLS: Unremarkable as visualized. No inflammatory changes. OTHER FINDINGS: The findings were called to the ICU. I spoke to Amanda the patient's nurse at 11:15 a.m. IMPRESSION: Large hemorrhagic infarct in the right frontal lobe.
--- NOTE | 2017-11-03 11:28 | CP.CCUPN ---
Addendum entered and electronically signed by Berlin Fisher DO 11/03/17 13:18: Discussed case with Dr. Cabrera neurosurgery about hemorrhagic conversion of ischemic stroke s/p tpa. Advised to get repeat head CT tomorrow morning. No intervention at this time. Berlin Fisher D.O. Original Note: <Hieu Veliz - Last Filed: 11/03/17 12:35> CCU Subjective - Physician Review Subjective (Free Text): ICU Progress Note Pt seen and examined at bedside. No acute overnight events. Patients states that he is able to move his extremities better. Patient admits to some pain in his left hand. Pt denied CP, SOB, n/v/d, abdominal pain, fever, chills, S[place], or dizziness. CCU Objective - Vital Signs / Intake & Output Vital Signs (Last 4 hours): Vital Signs Pulse Resp BP Pulse Ox 11/03/17 11:16 171/79 H 11/03/17 09:00 77 11/03/17 08:30 81 18 86 L 11/03/17 08:15 74 14 93 L 11/03/17 08:00 72 19 123/72 89 L 11/03/17 07:45 76 12 92 L 11/03/17 07:30 79 21 92 L Intake and Output (Last 8hrs): Intake & Output 11/02/17 11/03/17 11/03/17 22:59 06:59 14:59 Intake Total 0 Output Total 1327 1300 Balance -1327 -1300 Weight 77.111 kg 76.657 kg 76.793 kg Intake: IV 0 Right Forearm 0 Oral 0 Output: Urine 825 1300 Condom 825 1300 Stool 500 Urine/Stool Mix 2 Other: Voiding Method Toilet # Bowel Movements 2 1 - Physical Exam Head: Positive for: Atraumatic, Normocephalic, Other (left sided facial droop) Pupils: Positive for: PERRL. Negative for: Pinpoint Extroacular Muscles: Positive for: EOMI, Gaze Palsy (right) Conjunctiva: Positive for: Normal Ears: Positive for: Normal, NORMAL TM Mouth: Positive for: Moist Mucous Membranes, Other (left sided droop) Pharnyx: Positive for: Normal Nose (External): Positive for: Atraumatic Nose (Internal): Positive for: Normal Inspection Neck: Positive for: Normal Range of Motion. Negative for: MIDLINE TENDERNESS Respiratory/Chest: Positive for: Good Air Exchange, Respiratory Distress, Accessory Muscle Use. Negative for: Wheezes, Rales, Retracting, Rhonchi Cardiovascular: Positive for: Regular Rate and Rhythm, Normal S1, S2. Negative for: Murmurs Abdomen: Positive for: Normal Bowel Sounds. Negative for: Tenderness, Distention, Peritoneal Signs Back: Positive for: Normal Inspection Upper Extremity: Positive for: Normal Inspection, NORMAL PULSES, Other (swelling /erythema left dorsum of hand, splint in place on left 5th finger). Negative for: Edema Lower Extremity: Positive for: Normal Inspection, NORMAL PULSES, Other. Negative for: Edema Neurological: Positive for: GCS=15, CN II-XII Intact. Negative for: Speech Normal (minor dysarthria), Motor Func Grossly Intact (RUE and LUE motor function grossly intact; LUE proximal strength 4/5, 0/5 loom blower strength; LLE 4/5 strength) Skin: Positive for: Warm Psychiatric: Positive for: Alert, Oriented x 3 - Medications Active Medications: Active Medications Generic Name Dose Route Start Last Admin Trade Name Freq PRN Reason Stop Dose Admin Furosemide 40 mg 11/02/17 22:00 11/03/17 11:16 Lasix IVP 40 mg Q12H MARCELLA Administration Nicardipine HCl 20 mg in 200 mls @ 50 mls/hr 11/03/17 11:21 Cardene Iv Premix IV .Q4H PRN TITRATE PER MD ORDER Protocol 5 MG/HR Methylprednisolone 40 mg 11/02/17 22:00 11/03/17 11:16 Solu-Medrol IVP 40 mg Q12 MARCELLA Administration Nystatin 0 gm 11/02/17 14:36 11/03/17 11:18 Nystop Topical Powder TOP 1 applic BID MARCELLA Administration - Patient Studies Lab Studies: Lab Studies 11/03/17 11/03/17 Range/Units 07:30 07:30 Lactate Dehydrogenase 671 (333-699) U/L Total Creatine Kinase 495 H (35-230) U/L CK-MB (CK-2) 4.5 H (0.0-3.6) ng/mL CK-MB (CK-2) % Cancelled Troponin I 0.27 H* D ng/mL Triglycerides 107 (35-160) mg/dL Cholesterol 188 (130-200) mg/dL LDL Cholesterol Direct 133 H (0-129) mg/dL HDL Cholesterol 40 (29-60) mg/dL TSH 3rd Generation 1.70 (0.46-4.68) mIU/mL Laboratory Results - last 24 hr 11/03/17 11/03/17 07:30 07:30 Lactate Dehydrogenase 671 Total Creatine Kinase 495 H CK-MB (CK-2) 4.5 H CK-MB (CK-2) % Cancelled Troponin I 0.27 H* D Triglycerides 107 Cholesterol 188 LDL Cholesterol Direct 133 H HDL Cholesterol 40 TSH 3rd Generation 1.70 EKG/Cardiology Studies: Cardiology / EKG Studies 11/03/17 07:00 EKG [ELECTROCARDIOGRAM] Routine Comment: Reason For Exam: ro mi Fingerstick Blood Sugar Results: 159 Critical Care Progress Note - Nutrition Nutrition: Nutrition Category Date Time Status NPO Diet [DIET] Diets 11/02/17 Lunch Ordered Assessment/Plan - Assessment and Plan (Free Text) Assessment: 72 M with PMH of lung CA s/p lobectomy, COPD, bipolar, TIA admitted to the ICU for ischemic CVA s/p tPA with some improvement of his left sided deficits overnight. However, today repeat CT and brain MRI ordered which showed a new intracranial hemorrhage. Plan: Neuro: - Head CT (on admission): No acute intracranial hemorrhage. Mild chronic white matter with scattered subcortical and bilateral cerebellar lacunar type infarcts. - CTA head/neck: 40% stenosis left common carotid, 60% stenosis right common carotid. Focal stenosis proximal basilar artery. Moderate stenosis of right subclavian artery - Repeat Head CT (11/03): showed large hemorrhagic infarct in the right frontal lobe - MRI Brain showed large hemorrhagic infarct in the right frontal lobe - Head/Neck MRA showed no evidence of occlusion or high grade stenosis - Echo with bubble study ordered - Cardene gtt - maintain SBP 140-160 due to new hemorrhagic CVA - Aspiration precautions - HoB above 30 degrees - Neuro checks - PT/OT - Maintain normothermia - Neurology consulted - Neurosurgery consulted CV: - Troponin 0.22, 0.27, discussed with cardiology, likely [employer] ENGINEER origin - BNP 6520 - Maintain SBP 140-160 - Lasix 40 mg IVP Q12H - Cardene gtt - Echo ordered - Cardiology consulted Pulm: - CXR showed diffuse interstitial infiltrate and mild vascular congestion.\ - ABG ordered - Solumedrol 40 mg IVP q12h - BIPAP prn, currently on venti mask - Maintain O2 sat between 88-92% GI: - NPO - Protonix for GI PPx - Speech/Swallow eval Renal: - Maintain euvolemia - Monitor electrolytes and replete as needed - Monitor I and O's Heme: - Monitor H/H - SCD's for DVT ppx - No AC in setting of hemorrhagic CVA ID: - Procalcitonin ordered Endo: - Maintain euglycemia MSK: - Left hand x-ray showed minimally nondisplaced fracture of the left 5th proximal phalanx - Splinted - Ortho consulted Pt seen and discussed in detail with Dr. Andre. León Veliz, PGY1 <Shukri Andre - Last Filed: 11/03/17 15:34> CCU Objective - Vital Signs / Intake & Output Vital Signs (Last 4 hours): Vital Signs Pulse Resp BP Pulse Ox 11/03/17 14:35 85 38 H 11/03/17 14:33 88 20 11/03/17 14:32 93 H 20 11/03/17 14:31 92 H 11/03/17 14:30 150/80 11/03/17 14:29 87 84 L 11/03/17 14:15 77 29 H 150/75 84 L 11/03/17 14:00 85 15 168/80 H 88 L 11/03/17 13:45 80 32 H 146/84 85 L 11/03/17 13:30 83 17 157/82 H 90 L 11/03/17 13:15 76 35 H 147/76 89 L 11/03/17 13:00 77 25 H 139/78 90 L 11/03/17 12:54 79 11/03/17 12:53 80 18 11/03/17 12:51 87 30 H 11/03/17 12:50 84 11/03/17 12:45 158/74 H 11/03/17 12:44 85 61 H 11/03/17 12:43 91 H 31 H 11/03/17 12:30 87 29 H 144/77 86 L 11/03/17 12:15 158/65 H 11/03/17 12:14 92 H 24 85 L 11/03/17 12:13 89 26 H 11/03/17 12:11 87 23 11/03/17 12:10 87 11/03/17 12:09 85 16 11/03/17 12:08 84 29 H 11/03/17 12:07 87 36 H 11/03/17 12:06 85 26 H 11/03/17 12:05 83 11/03/17 12:04 86 11/03/17 12:00 88 21 145/77 86 L 11/03/17 11:45 84 18 128/67 89 L 11/03/17 11:35 80 43 H 136/81 89 L Intake and Output (Last 8hrs): Intake & Output 11/03/17 11/03/17 11/03/17 06:59 14:59 22:59 Intake Total 0 Output Total 1300 Balance -1300 Weight 169 lb 169 lb 4.8 oz Intake: IV 0 Right Forearm 0 Oral 0 Output: Urine 1300 Condom 1300 Other: # Bowel Movements 1 - Medications Active Medications: Active Medications Generic Name Dose Route Start Last Admin Trade Name Freq PRN Reason Stop Dose Admin Artificial Tears 0 ml 11/03/17 15:30 Artificial Tears OU Q6H MARCELLA Furosemide 40 mg 11/02/17 22:00 11/03/17 11:16 Lasix IVP 40 mg Q12H MARCELLA Administration Nicardipine HCl 20 mg in 200 mls @ 50 mls/hr 11/03/17 11:21 11/03/17 11:27 Cardene Iv Premix IV 5 mg/hr .Q4H PRN 50 mls/hr TITRATE PER MD ORDER Administration Protocol 5 MG/HR Methylprednisolone 40 mg 11/02/17 22:00 11/03/17 11:16 Solu-Medrol IVP 40 mg Q12 MARCELLA Administration Nystatin 0 gm 11/02/17 14:36 11/03/17 11:18 Nystop Topical Powder TOP 1 applic BID MARCELLA Administration Pantoprazole Sodium 40 mg 11/04/17 10:00 Protonix Inj IVP DAILY MARCELLA - Patient Studies Lab Studies: Lab Studies 11/03/17 11/03/17 Range/Units 07:30 07:30 Lactate Dehydrogenase 671 (333-699) U/L Total Creatine Kinase 495 H (35-230) U/L CK-MB (CK-2) 4.5 H (0.0-3.6) ng/mL CK-MB (CK-2) % Cancelled Troponin I 0.27 H* D ng/mL Triglycerides 107 (35-160) mg/dL Cholesterol 188 (130-200) mg/dL LDL Cholesterol Direct 133 H (0-129) mg/dL HDL Cholesterol 40 (29-60) mg/dL TSH 3rd Generation 1.70 (0.46-4.68) mIU/mL Laboratory Results - last 24 hr 11/03/17 11/03/17 07:30 07:30 Lactate Dehydrogenase 671 Total Creatine Kinase 495 H CK-MB (CK-2) 4.5 H CK-MB (CK-2) % Cancelled Troponin I 0.27 H* D Triglycerides 107 Cholesterol 188 LDL Cholesterol Direct 133 H HDL Cholesterol 40 TSH 3rd Generation 1.70 EKG/Cardiology Studies: Cardiology / EKG Studies 11/03/17 07:00 EKG [ELECTROCARDIOGRAM] Routine Comment: Reason For Exam: ro mi Critical Care Progress Note - Nutrition Nutrition: Nutrition Category Date Time Status NPO Diet [DIET] Diets 11/02/17 Lunch Ordered Attending/Attestation - Attestation I have personally seen and examined this patient.: Yes I have fully participated in the care of the patient.: Yes I have reviewed all pertinent clinical information: Yes Notes (Text): 11/03/17 15:[address] Andre note
--- NOTE | 2017-11-03 14:51 | CARD ---
APPROVED REPORT EKG Measurement Heart [id number] <Conclusion> Normal sinus rhythm PRWP LAD ST & T wave abnormality c/w ischemia Prolonged QT
[2017-11-03] MEDS ORDERED: Aritificial Tears (15ml) OU SCH (15:30)
--- NOTE | 2017-11-03 16:18 | CARD ---
APPROVED REPORT EXAM: Two-dimensional and M-mode echocardiogram with Doppler and color Doppler. INDICATION LV Function:SystolicDiastolic PFO 2D DIMENSIONS Left Atrium (2D)3.6 (1.6-4.0cm)IVSd1.1 (0.7-1.1cm) LVDd4.1 (3.9-5.9cm)PWd1.3 (0.7-1.1cm) LVDs2.8 (2.5-4.0cm)FS (%) 30.6 % LVEF (%)58.7 (>50%) M-Mode DIMENSIONS Aortic Root2.80 (2.2-3.7cm)Aortic Cusp Exc.1.70 (1.5-2.0cm) Aortic Valve AoV Peak Qkykxtrv228.0cm/Meera Peak GR.5mmHg Mitral Valve MV E Qfsceuvr78.6cm/sMV A Eunvvvla96.2cm/sE/A ratio0.6 TDI E/Lateral E'0.0E/Medial E'0.0 Tricuspid Valve TR Peak [id number]/sRAP [id number] Peak Gr.19mmHg [id number] LEFT VENTRICLE The left ventricle is normal size. There is borderline concentric left ventricular hypertrophy. The left ventricular function is normal.EF-55-60% There is normal LV segmental wall motion. Transmitral Doppler flow pattern is Grade III-reversible restrictive diastolic dysfunction. No left ventricle thrombus noted on this study. There is no ventricular septal defect visualized. There is no left ventricular aneurysm. There is no mass noted in the left ventricle. RIGHT VENTRICLE The right ventricle is normal size. There is normal right ventricular wall thickness. The right ventricular systolic function is normal. ATRIA The left atrium size is normal. The right atrium size is normal. The interatrial septum is intact with no evidence for an atrial septal defect. AORTIC VALVE The aortic valve is thickened but opens well. No aortic regurgitation is present. There is no aortic valvular stenosis. There is no aortic valvular vegetation. MITRAL VALVE The mitral valve is thickened but opens well. Mitral regurgitation is trace. There is no mitral valve stenosis. There is no evidence of mitral valve prolapse. TRICUSPID VALVE The tricuspid valve leaflets are thickened , but open well. There is mild tricuspid regurgitation.RVSP-29 mmof Hg There is no tricuspid valve stenosis. There is no tricuspid valve prolapse or vegetation. PULMONIC VALVE The pulmonic valve is borderline thickened. There is trace pulmonic valvular regurgitation. There is no pulmonic valvular stenosis. GREAT VESSELS The aortic root is normal in size. The ascending aorta is normal in size. The pulmonary artery is normal. The IVC is normal in size and collapses >50% with inspiration. PERICARDIAL EFFUSION There is no pleural effusion. There is no pericardial effusion. <Conclusion> Normal chamber Size. EF-55-60% Trace MR/PI Mild TR. RVSP-29 mmof Hg. NO PFO by bubble study. No PE, No thrombus/ vegetation.
[2017-11-03] MEDS: Lubricant Eye Drops UD OU SCH ×2 (16:39→22:37)
--- NOTE | 2017-11-03 18:51 | HP ---
CHIEF COMPLAINT: Stroke. HISTORY OF PRESENT ILLNESS: This is a 72-year-old man, fairly noncompliant and lost the followup for over 5 years, who presented to the emergency room after being found on the floor with an acute stroke. Code stroke was called. T-PA was given. History was obtained from medical records and from his daughter. The patient was admitted to intensive care. PAST MEDICAL HISTORY: Significant for mental health issues, depression dating back to when we first met him in 2004, when he was on Prozac, Depakote, Lipitor, and Plavix. He has a history of peripheral vascular disease, had a fem-pop bypass in 2001, at [facility]. He was also hospitalized in 2011, when he was found by [place]. He was brought to [place] and admitted with possible CVA and then followed on the psych floor, followed by psychiatry services. Apparently, the patient has been by a psychiatrist on a regular basis. We have not seen the patient in 5 years. His daughter reports a history of lung cancer, but I will need to get more details of that when I speak with her. MEDICATIONS: Review of the electronic claims history on this patient reveals recent prescription refills for medicines including trazodone 150 mg, lorazepam 1 mg, 100 mg, gabapentin 600 mg, bupropion XL 300 mg. The doses and frequency are not known. ALLERGIES: HE HAS NO KNOWN ALLERGIES. SOCIAL HISTORY: He has a history of tobacco use as well as alcohol use, which may have stopped many years ago. He was disabled due to his peripheral vascular disease. with adult children of one daughter and one son. PHYSICAL EXAMINATION: GENERAL: The patient is seen this Wednesday evening in the intensive care unit, status post t-PA. He is awake, moving all extremities, wearing a BiPAP mask, so speech and conversation are limited. HEENT: Conjunctivae are pink. Mucous membranes are moist. Eye movements are full, although there may be a preference to the right lateral gaze. LUNGS: Show good aeration, right and left with a BiPAP mask in place. ABDOMEN: Soft, nontender. HEART: Regular, not tachycardic. EXTREMITIES: Thin with no edema. IMPRESSION: 1. Status post cerebrovascular accident. 2. History of peripheral vascular disease. 3. History of mental health disorder. 4. Hyperlipidemia. 5. Noncompliance, lost the medical followup for over 5 years. PLAN: Statin, aspirin. Neurology followup. BiPAP mask. Reassess pulmonary status. Psychiatry consultation in the future. Bud Herrera MD
--- NOTE | 2017-11-03 19:46 | PN ---
DATE: 11/03/2017 NEUROLOGY FOLLOWUP This is a 72-year-old man. CHIEF COMPLAINT: Followup for left-sided weakness. SUBJECTIVE: Patient was seen and examined at the bedside, still has some left-sided weakness, had a repeat CAT scan, which showed hemorrhagic conversion in the right frontal lobe, which is likely to make the patient drowsy. The hemorrhagic infarct is large in nature. Neurosurgery was called, apparently was told no intervention at this time. Blood pressure is stable. Patient is aware antiplatelets are on hold. Patient does understand and communicates with me, had some mild dysarthria. PAST MEDICAL HISTORY: History of lung cancer, status post lobectomy, hypertension and cognitive impairment. PAST SURGICAL HISTORY: Status post lobectomy for lung cancer. MEDICATIONS: Reviewed by nurse per reconciliation sheet. REVIEW OF SYSTEMS: A 14-point review of systems is negative except per the HPI. SOCIAL HISTORY: No illicit drug use, smoking or EtOH abuse. LABORATORY DATA: Blood glucose today is 163. PHYSICAL EXAMINATION: VITAL SIGNS: Temperature afebrile, pulse rate is 76, blood pressure 138/76, respiratory rate of 20, oxygen saturation 82% via nasal cannula. GENERAL: Patient is lethargic, opens eyes, follow simple commands. HEENT: Head is atraumatic, normocephalic. PERRLA. Extraocular muscles intact. NECK: Supple. No JVD. No adenopathy noted. LUNGS: Clear to auscultation. No adventitious sounds. HEART: S1, S2. Normal rate and rhythm. No murmurs, rubs or gallops. ABDOMEN: Soft, nontender, nondistended. Bowel sounds are present. EXTREMITIES: No clubbing, no cyanosis. Peripheral pulses are 2+ felt bilaterally. NEUROLOGIC: The patient is alert, oriented, drowsy but oriented to person, place and follow simple commands. Slightly dysarthric in terms of speech. Cranial nerves II through XII intact except for mild left facial droop. Motor exam: Left upper extremity 4+/5 and left lower extremity 4++ to 5-/5. In terms of strength, the right side is intact. Toes are upgoing bilaterally. Sensory: Light touch, pinprick, proprioception, and vibration intact. DTRs are 2+ throughout. Withdraws to localized and noxious stimulus. Coordination: Jqbmmr-wa-ydur intact on the right but difficulty with left upper extremity weakness. Gait is deferred for now. ASSESSMENT AND PLAN: This is a 72-year-old man with past medical history of lung cancer, status post lobectomy, hypertension, dyslipidemia, history of ethyl alcohol abuse and former smoker, who comes in with acute onset of mild left facial droop, left-sided weakness with status post tissue plasminogen activator due to that he was in the window without any contraindications. His initial CT scan showed no acute intracranial abnormalities, just chronic ischemic changes and CT angio of the head and neck showed overall common carotids of 40% on the left and 60% on the right and he had elevated BNP and congestive heart failure exacerbation in addition to that. He had a repeat CAT scan and MRI of the brain, which showed hemorrhagic conversion of acute right large frontal infarct. Patient follows commands, still has left-sided weakness. At this time recommend: 1. No antiplatelet medication for 3 to 4 weeks with acute onset of hemorrhagic conversion. 2. Monitor his electrolytes and correct accordingly. 3. Keep his blood pressures between 120 to 130s systolic and diastolic 70 to 80s. 4. Physical therapy and occupational therapy evaluation and speech therapy and will need acute rehab. 5. Atorvastatin of 40 mg p.o. daily for stroke prevention and continue current present medical management. Thank you for this followup. Ty Santo MD
--- NOTE | 2017-11-03 23:04 | CT ---
EXAM: CT Head Without Intravenous Contrast EXAM DATE/TIME: 11/03/2017 9:00 PM CLINICAL HISTORY: The patient age is 72 years old and is male; Condition or disease; Other: Bleed; Patient HX: Previous scan sent; Additional info: Monitor bleed Facility exam id and description: Ct heads head w/o contrast TECHNIQUE: Axial computed tomography images of the head/brain without intravenous contrast. All CT scans at this facility use one or more dose reduction techniques, viz.: automated exposure control; ma/kV adjustment per patient size (including targeted exams where dose is matched to indication; i.e. head); or iterative reconstruction technique. Coronal and sagittal reformatted images were created and reviewed. COMPARISON: CT - HEAD W/O CONTRAST 2017-11-03 10:51 FINDINGS: Artifacts: Motion artifact significantly limits the study. Brain: Areas of hyperdense acute subarachnoid and intraparenchymal hemorrhage are identified involving the right frontal lobe region, similar to the prior study. Acute subarachnoid hemorrhage is seen within the bilateral parietal sulci. One of the larger areas of hemorrhage within the right frontal lobe measures approximately 2.8 x 2.0 cm. Sulcal effacement is identified on the right side. There is sulcal atrophy visualized on the left side. There are small periventricular foci of hypodensity, likely representing small vessel ischemic disease in a patient this age. Midline shift: There is no midline shift. Ventricles: No ventriculomegaly. Bones/joints: The calvarium demonstrates no evidence for a depressed fracture. Soft tissues: No acute abnormality. Vasculature: There is atherosclerotic calcification of the intracranial internal carotid arteries. Sinuses: Unremarkable as visualized. No acute sinusitis. Mastoid air cells: No mastoid effusion. IMPRESSION: 1. Areas of hyperdense acute subarachnoid and intraparenchymal hemorrhage are identified involving the right frontal lobe region, similar to the prior study. Acute subarachnoid hemorrhage is seen within the bilateral parietal sulci. Continued follow-up with CT is recommended. 2. Sulcal effacement is identified on the right side. There is sulcal atrophy visualized on the left side. 3. There are small periventricular foci of hypodensity, likely representing small vessel ischemic disease in a patient this age. 4. Motion artifact significantly limits the study.
--- NOTE | 2017-11-04 04:11 | PN ---
DATE: 11/04/2017 DAILY PROGRESS NOTE: SUBJECTIVE: The patient is a 72-year-old male with a long history of lung carcinoma, status post right lobectomy and history of hypertension. He is status post fem-pop bypass. He also has a history of bipolar disorder, schizophrenia, peripheral vascular disease and coronary artery disease, who apparently collapsed at home and was brought to the emergency room and was found to have an acute cerebrovascular accident. He received tPA and was admitted to the Intensive Care Unit. His troponin were also elevated at 0.22 and BNP is elevated at 6520. When seen today in the Intensive Care Unit, he is awake, alert and oriented. He recognized me. He was answering questions appropriately. His left upper extremity was flaccid. 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 We are awaiting results of an MRI, which was done today and we will continue to follow the patient closely. Oskar Herrera MD MTDD
--- NOTE | 2017-11-04 06:37 | CON ---
DATE OF SERVICE: REASON FOR CONSULTATION: Positive troponin, status post CVA, left sided weakness, status post tPA. BRIEF CLINICAL HISTORY: This is a 72-year-old male with past medical history of lung CA. He is status post lobectomy, peripheral arterial disease, status post stent in both lower extremity 10 years ago. He was on aspirin and Plavix, very noncompliant, stop taking 5 years ago. History of bipolar disorder, on anti-psychiatric medications, being followed by Dr. Lamar. Patient used to go to Dr. Herrera, but did not see for couple of years. He came in yesterday with acute CVA with left sided weakness and mild left facial droop. He got tPA. First troponin was 0.22. The Cardiology consult was called. Repeat troponin is pending because as per protocol no further blood drawn was done for 12 hours. The patient denies any chest pain, shortness of breath. Denies any palpitations. PAST MEDICAL HISTORY: Significant for lung CA, status post lobectomy, history of peripheral arterial disease, status post PTCA 10 years ago at [facility], history of bipolar disorder. CURRENT MEDICATIONS: Patient is taking trazodone, gabapentin, and Seroquel from Dr. Lamar. Supposed to take aspirin and Plavix, he did not take for more than 5 years, supposed to follow with Dr. Herrera, was very noncompliant. SOCIAL HISTORY: Denies any alcohol. Quit smoking after the lung CA. Denies any history of alcohol abuse. FAMILY HISTORY: Noncontributory. PAST SURGICAL HISTORY: Significant for lobectomy of right lung. ALLERGIES: NO KNOWN DRUG ALLERGIES. REVIEW OF SYSTEMS: As per HPI. PHYSICAL EXAMINATION: GENERAL: Height of the patient 5 feet 6 inches, weight of the patient pounds, body mass index 30 kg/m2. VITAL SIGNS: Temperature afebrile, heart rate 69, blood pressure 149/81. HEENT: PERRLA. Extraocular muscles are intact. NECK: Supple. No carotid bruit or thyromegaly. CHEST: Clear to auscultation. HEART: S1 and S2 regular. ABDOMEN: Soft. EXTREMITIES: Clubbing and cyanosis negative. LABORATORY DATA: Blood workup as followed. WBC 11.8, hemoglobin 16.3, hematocrit 50, platelet count 252. Chemistry showed sodium 141, potassium 4.1, chloride 101, carbon dioxide 30, anion gap of 22, BUN 14, creatinine 1.3. EKG showed normal sinus, T inversion in II, III and aVF. No acute ST-T changes noted. IMPRESSION: Acute cerebrovascular accident, ex-smoker, history of peripheral arterial disease, borderline troponin positive most likely secondary to from QUILT SEWER source, doubt any cardiac event. We will repeat another troponin set. Since the patient has tPA ,as per Neurology protocol, no blood drawn was done. So we will add on troponin and fasting lipid profile, TSH and hemoglobin A1c. We will follow with you. Thank you Dr. Herrera for providing us the opportunity in taking care of the patient, Pk. We will also fractionate the MB fraction to differentiate which is cardiac source and noncardiac. We will get echo to assess left ventricular function do the and we will do the bowel study to rule out any patent foramen ovale. Sherif Tanner MD
[2017-11-04 06:49] LABS: HEMOGLOBIN 16.8 g/dL (14.0-18.0); MEAN CELL VOLUME 93.8 fl (80.0-105.0); MEAN CORPUSCULAR HEMOGLOBIN 31.4 pg (25.0-35.0); MEAN CORPUSCULAR HGB CONC 33.5 g/dl (31.0-37.0); RBC 5.35 10^6/uL (3.5-6.1); RED CELL DISTRIBUTION WIDTH 16.8 % (11.5-14.5)
[2017-11-04 07:14] LABS: LDL CHOLESTEROL 145 mg/dL (0-129)
[2017-11-04 07:22] LABS: ALB/GLOB RATIO 1.1 (1.1-1.8); ALBUMIN 4.4 g/dL (3.0-4.8); ALT/SGPT 25 U/L (7-56); AST/SGOT 64 U/L (17-59); BLOOD UREA NITROGEN 34 mg/dL (7-21); CALCIUM 6.9 mg/dL (8.4-10.5); GFR AFRICAN-AMERICAN > 60; GFR NON-AFRICAN AMERICAN 50; HDL CHOLESTEROL 41 mg/dL (29-60)
[2017-11-04 07:24] LABS: INR 1.18 (0.93-1.08); PARTIAL THROMBOPLASTIN TIME 23.8 Seconds (25.1-36.5); PROTHROMBIN TIME 13.6 SECONDS (9.4-12.5)
[2017-11-04 07:30] LABS: WHITE BLOOD COUNT 25.6 10^3/ul (4.5-11.0)
--- NOTE | 2017-11-04 10:00 | CT ---
PROCEDURE: CT HEAD WITHOUT CONTRAST. HISTORY: Hemorrhagic conversion ischemic stroke s/p tpa COMPARISON: Unenhanced head CT 11/03/2017. TECHNIQUE: Axial computed tomography images were obtained through the head/brain without intravenous contrast. Radiation dose: Total exam DLP = 856.00 MGy-cm. This CT exam was performed using one or more of the following dose reduction techniques: Automated exposure control, adjustment of the mA and/or kV according to patient size, and/or use of iterative reconstruction technique. FINDINGS: HEMORRHAGE: Hemorrhagic conversion of a right MCA distribution infarct is reiterated with both intraparenchymal and subarachnoid hemorrhage affecting the right frontal, temporal and parietal lobes. Intraparenchymal hemorrhage mostly affects the right frontotemporal distribution. Trace subarachnoid hemorrhage is identified at the left parietal lobe near the vertex posteriorly. BRAIN: No midline shift is appreciated once again although the sulci at the right cerebral hemisphere significantly diminished in this patient with diffuse cerebral atrophy. Posterior fossa contents appear grossly unremarkable with midline brain anatomy unremarkable appearing overall. VENTRICLES: Unremarkable. No hydrocephalus. CALVARIUM: Unremarkable. PARANASAL SINUSES: Unremarkable as visualized. No significant inflammatory changes. MASTOID AIR CELLS: Unremarkable as visualized. No inflammatory changes. OTHER FINDINGS: None. IMPRESSION: Stable hemorrhagic conversion of right MCA infarct with intraparenchymal and subarachnoid hemorrhage appreciated at the right frontotemporal and right parietal distributions once again. Trace subarachnoid hemorrhage is also seen the left parietal vertex posteriorly, also stable. No increased mass effect at the right cerebral hemisphere. No midline shift in the interval. Continued clinical and CT monitoring are advised.
--- NOTE | 2017-11-04 10:50 | CP.PCM.PN ---
Subjective - Date & Time of Evaluation Date of Evaluation: 11/04/17 Time of Evaluation: 10:49 - Subjective Subjective: stable hemmorhage into completed R MCA infarct no mass effect now most likely 48 hrs old no surgical intervention indicated if there is a change in pt condition reconsult Objective - Vital Signs/Intake and Output Vital Signs (last 24 hours): Temp Pulse Resp BP Pulse Ox 97.8 F 78 26 H 137/72 91 L 11/04/17 04:15 11/04/17 08:00 11/04/17 08:00 11/04/17 08:00 11/04/17 08:00 Intake and Output: 11/04/17 11/04/17 06:59 18:59 Intake Total 100 Output Total 550 Balance -450 - Medications Medications: Current Medications Amlodipine Besylate (Norvasc) 10 mg PO DAILY MARCELLA Artificial Tears (Refresh Opth Soln) 0 ml OU Q6H MARCELLA Last Admin: 11/03/17 22:37 Dose: 0.3 ml Furosemide (Lasix) 40 mg IVP DAILY MARCELLA Methylprednisolone (Solu-Medrol) 20 mg IVP Q12 MARCELLA Nystatin (Nystop Topical Powder) 0 gm TOP BID MARCELLA Last Admin: 11/03/17 18:12 Dose: 1 applic Pantoprazole Sodium (Protonix Inj) 40 mg IVP DAILY MARCELLA - Labs Labs: 11/04/17 05:20 11/04/17 05:20 PT 13.6 SECONDS (9.4-12.5) H 11/04/17 05:20 INR 1.18 (0.93-1.08) H 11/04/17 05:20 APTT 23.8 Seconds (25.1-36.5) L 11/04/17 05:20
[2017-11-04] MEDS: Lubricant Eye Drops UD OU SCH ×3 (11:06→22:16)
[2017-11-04] MEDS: Nystatin 100,000 Units/gm Topical Pow(15 gm) TOP SCH ×2 (11:10→18:29)
[2017-11-04] MEDS ORDERED: MethylPREDNISolone 40 mg Vial IVP ONE (11:45)
--- NOTE | 2017-11-04 12:53 | CP.CCUPN ---
<Hieu Veliz - Last Filed: 11/04/17 12:38> CCU Subjective - Physician Review Subjective (Free Text): ICU Progress Note Pt seen and examined at bedside. No acute overnight events. Patients states that he is able to move his LUE better and breathing is improved. Patient admits to some pain in his left hand. Pt denied CP, SOB, n/v/d, abdominal pain, fever, chills, SULLIVAN, or dizziness. CCU Objective - Vital Signs / Intake & Output Vital Signs (Last 4 hours): Vital Signs Temp Pulse Resp BP Pulse Ox 11/04/17 12:00 98.2 F 84 25 H 167/74 H 91 L 11/04/17 11:15 144/76 11/04/17 11:08 144/76 11/04/17 11:00 77 11 L 144/76 90 L 11/04/17 10:00 80 20 153/68 H 91 L 11/04/17 09:00 85 45 H 141/76 91 L 11/04/17 08:56 89 17 136/81 90 L Intake and Output (Last 8hrs): Intake & Output 11/03/17 11/04/17 11/04/17 22:59 06:59 14:59 Intake Total 360 100 Output Total 550 550 Balance -190 -450 Weight 76.204 kg 76.204 kg Intake: IV 0 Right Forearm 0 Oral 360 100 Output: Urine 550 550 Condom 550 550 Other: # Bowel Movements 0 - Physical Exam Head: Positive for: Atraumatic, Normocephalic, Other (left sided facial droop) Pupils: Positive for: PERRL. Negative for: Pinpoint Extroacular Muscles: Positive for: EOMI, Gaze Palsy (right) Conjunctiva: Positive for: Normal Ears: Positive for: Normal, NORMAL TM Mouth: Positive for: Moist Mucous Membranes, Other (left sided droop) Pharnyx: Positive for: Normal Nose (External): Positive for: Atraumatic Nose (Internal): Positive for: Normal Inspection Neck: Positive for: Normal Range of Motion. Negative for: MIDLINE TENDERNESS Respiratory/Chest: Positive for: Good Air Exchange, Respiratory Distress, Accessory Muscle Use. Negative for: Wheezes, Rales, Retracting, Rhonchi Cardiovascular: Positive for: Regular Rate and Rhythm, Normal S1, S2. Negative for: Murmurs Abdomen: Positive for: Normal Bowel Sounds. Negative for: Tenderness, Distention, Peritoneal Signs Back: Positive for: Normal Inspection Upper Extremity: Positive for: Normal Inspection, NORMAL PULSES, Other (swelling /erythema left dorsum of hand, splint in place on left 5th finger, clubbing all fingers). Negative for: Edema Lower Extremity: Positive for: Normal Inspection, NORMAL PULSES. Negative for: Edema Neurological: Positive for: GCS=15, CN II-XII Intact. Negative for: Speech Normal (minor dysarthria), Motor Func Grossly Intact (RUE and LUE motor function grossly intact; LUE proximal strength 4/5, 0/5 driller multiple spindle strength; LLE 4/5 strength) Skin: Positive for: Warm Psychiatric: Positive for: Alert, Oriented x 3 - Medications Active Medications: Active Medications Generic Name Dose Route Start Last Admin Trade Name Freq PRN Reason Stop Dose Admin Amlodipine Besylate 10 mg 11/04/17 10:15 11/04/17 11:08 Norvasc PO 10 mg DAILY MARCELLA Administration Artificial Tears 0 ml 11/03/17 16:02 11/04/17 11:06 Refresh Opth Soln OU 0.3 ml Q6H MARCELLA Administration Furosemide 40 mg 11/05/17 10:00 Lasix IVP DAILY MARCELLA Methylprednisolone 20 mg 11/04/17 10:02 Solu-Medrol IVP Q12 MARCELLA Nystatin 0 gm 11/02/17 14:36 11/04/17 11:10 Nystop Topical Powder TOP 1 applic BID MARCELLA Administration Pantoprazole Sodium 40 mg 11/04/17 10:00 11/04/17 11:08 Protonix Inj IVP 40 mg DAILY MARCELLA Administration - Patient Studies Lab Studies: Microbiology Studies 11/02/17 15:35 MRSA Culture (Admit) - Final Naris MRSA NOT DETECTED Lab Studies 11/04/17 11/04/17 11/04/17 Range/Units 07:27 05:20 05:20 WBC 25.6 H* D (4.5-11.0) 10^3/ul RBC 5.35 (3.5-6.1) 10^6/uL Hgb 16.8 (14.0-18.0) g/dL Hct 50.2 (42.0-52.0) % MCV 93.8 (80.0-105.0) fl MCH 31.4 (25.0-35.0) pg MCHC 33.5 (31.0-37.0) g/dl RDW 16.8 H (11.5-14.5) % Plt Count 348 (120.0-450.0) 10^3/uL MPV 10.0 (7.0-11.0) fl PT 13.6 H (9.4-12.5) SECONDS INR 1.18 H (0.93-1.08) APTT 23.8 L (25.1-36.5) Seconds Sodium (132-148) mmol/L Potassium (3.6-5.0) mmol/L Chloride (98-107) mmol/L Carbon Dioxide (21-33) mmol/L Anion Gap (10-20) BUN (7-21) mg/dL Creatinine (0.8-1.5) mg/dl Est GFR ( Amer) Est GFR (Non-Af Amer) POC Glucose (mg/dL) 149 H (65-110) mg/dL Random Glucose (70-110) mg/dL Calcium (8.4-10.5) mg/dL Phosphorus (2.5-4.5) mg/dL Magnesium (1.7-2.2) mg/dL Total Bilirubin (0.2-1.3) mg/dL AST (17-59) U/L ALT (7-56) U/L Alkaline Phosphatase (38-126) U/L Total Protein (5.8-8.3) g/dL Albumin (3.0-4.8) g/dL Globulin gm/dL Albumin/Globulin Ratio (1.1-1.8) Triglycerides (35-160) mg/dL Cholesterol (130-200) mg/dL LDL Cholesterol Direct (0-129) mg/dL HDL Cholesterol (29-60) mg/dL 11/04/17 11/03/17 11/03/17 Range/Units 05:20 23:19 17:21 WBC (4.5-11.0) 10^3/ul RBC (3.5-6.1) 10^6/uL Hgb (14.0-18.0) g/dL Hct (42.0-52.0) % MCV (80.0-105.0) fl MCH (25.0-35.0) pg MCHC (31.0-37.0) g/dl RDW (11.5-14.5) % Plt Count (120.0-450.0) 10^3/uL MPV (7.0-11.0) fl PT (9.4-12.5) SECONDS INR (0.93-1.08) APTT (25.1-36.5) Seconds Sodium 143 (132-148) mmol/L Potassium 4.0 (3.6-5.0) mmol/L Chloride 95 L (98-107) mmol/L Carbon Dioxide 30 (21-33) mmol/L Anion Gap 23 H (10-20) BUN 34 H (7-21) mg/dL Creatinine 1.4 (0.8-1.5) mg/dl Est GFR ( Amer) > 60 Est GFR (Non-Af Amer) 50 POC Glucose (mg/dL) 146 H 163 H (65-110) mg/dL Random Glucose 149 H (70-110) mg/dL Calcium 6.9 L* (8.4-10.5) mg/dL Phosphorus 4.6 H (2.5-4.5) mg/dL Magnesium 2.2 (1.7-2.2) mg/dL Total Bilirubin 1.0 (0.2-1.3) mg/dL AST 64 H D (17-59) U/L ALT 25 (7-56) U/L Alkaline Phosphatase 152 H D (38-126) U/L Total Protein 8.5 H (5.8-8.3) g/dL Albumin 4.4 (3.0-4.8) g/dL Globulin 4.1 gm/dL Albumin/Globulin Ratio 1.1 (1.1-1.8) Triglycerides 138 (35-160) mg/dL Cholesterol 212 H (130-200) mg/dL LDL Cholesterol Direct 145 H (0-129) mg/dL HDL Cholesterol 41 (29-60) mg/dL Laboratory Results - last 24 hr 11/03/17 11/03/17 11/04/17 17:21 23:19 05:20 WBC RBC Hgb Hct MCV MCH MCHC RDW Plt Count MPV PT INR APTT Sodium 143 Potassium 4.0 Chloride 95 L Carbon Dioxide 30 Anion Gap 23 H BUN 34 H Creatinine 1.4 Est GFR ( Amer) > 60 Est GFR (Non-Af Amer) 50 POC Glucose (mg/dL) 163 H 146 H Random Glucose 149 H Calcium 6.9 L* Phosphorus 4.6 H Magnesium 2.2 Total Bilirubin 1.0 AST 64 H D ALT 25 Alkaline Phosphatase 152 H D Total Protein 8.5 H Albumin 4.4 Globulin 4.1 Albumin/Globulin Ratio 1.1 Triglycerides 138 Cholesterol 212 H LDL Cholesterol Direct 145 H HDL Cholesterol 41 11/04/17 11/04/17 11/04/17 05:20 05:20 07:27 WBC 25.6 H* D RBC 5.35 Hgb 16.8 Hct 50.2 MCV 93.8 MCH 31.4 MCHC 33.5 RDW 16.8 H Plt Count 348 MPV 10.0 PT 13.6 H INR 1.18 H APTT 23.8 L Sodium Potassium Chloride Carbon Dioxide Anion Gap BUN Creatinine Est GFR ( Amer) Est GFR (Non-Af Amer) POC Glucose (mg/dL) 149 H Random Glucose Calcium Phosphorus Magnesium Total Bilirubin AST ALT Alkaline Phosphatase Total Protein Albumin Globulin Albumin/Globulin Ratio Triglycerides Cholesterol LDL Cholesterol Direct HDL Cholesterol Fingerstick Blood Sugar Results: 149 Critical Care Progress Note - Nutrition Nutrition: Nutrition Category Date Time Status Dysphagia/Modified Consistency Diet [DIET] Diets 11/03/17 Breakfast Ordered Assessment/Plan - Assessment and Plan (Free Text) Assessment: 72 M with PMH of lung CA s/p lobectomy, COPD, bipolar, TIA admitted to the ICU for ischemic CVA s/p tPA with some improvement of his left sided deficits overnight. Repeat CT and brain MRI 24 hrs s/p TPA showed a new intracranial hemorrhage. However, repeat CT showed stable intracranial hemorrhage. Patient to be transferred to telemetry today. Plan: Neuro: - Head CT (on admission): No acute intracranial hemorrhage. Mild chronic white matter with scattered subcortical and bilateral cerebellar lacunar type infarcts. - CTA head/neck: 40% stenosis left common carotid, 60% stenosis right common carotid. Focal stenosis proximal basilar artery. Moderate stenosis of right subclavian artery - Repeat Head CT (11/03): showed large hemorrhagic infarct in the right frontal lobe - Repeat Head CT (11/04): stable large hemorrhagic infarct in the right frontal lobe - MRI Brain showed large hemorrhagic infarct in the right frontal lobe - Head/Neck MRA showed no evidence of occlusion or high grade stenosis - Echo with bubble study showed LVEF 58.7% and no PFO - Per neuro maintain SBP 120-130 and DBP 70-80 and hold antiplatelets for at least 3 weeks - Aspiration precautions - HoB above 30 degrees - Neuro checks - PT/OT - Maintain normothermia - Neurology consulted - Neurosurgery consulted - no surgical intervention CV: - EKG showed NSR, LAD, and prolonged QT - Troponin 0.22, 0.27, discussed with cardiology, likely INSPECTOR RUBBER STAMP DIE origin - BNP 6520 - Maintain SBP 120-30, DBP 70-80 - Lasix 40 mg IVP daily - Amlodipine 10 mg PO daily - Echo showed LVEF 58.7% - Cardiology consulted Pulm: - CXR showed diffuse interstitial infiltrate and mild vascular congestion. - ABG reviewed - Solumedrol tapered to 20 mg IVP q12h - BIPAP prn - Maintain O2 sat between 88-92% GI - Pureed nectar thick diet per swallow eval - Protonix for GI PPx Renal: - Maintain euvolemia - Monitor electrolytes and replete as needed - Monitor I and O's Heme: - Monitor H/H - SCD's for DVT ppx - No AC in setting of hemorrhagic CVA ID: - Procalcitonin 0.05 Endo: - Maintain euglycemia MSK: - Left hand x-ray showed minimally nondisplaced fracture of the left 5th proximal phalanx - Splinted - Ortho consulted Pt seen and discussed in detail with Dr. Andre. León Veliz, PGY1 <Shukri nAdre - Last Filed: 11/04/17 16:09> CCU Objective - Vital Signs / Intake & Output Vital Signs (Last 4 hours): Vital Signs Pulse Resp BP Pulse Ox 11/04/17 14:00 88 48 H 155/75 H 84 L 11/04/17 13:00 96 H 41 H 140/71 89 L Intake and Output (Last 8hrs): Intake & Output 11/04/17 11/04/17 11/04/17 06:59 14:59 22:59 Intake Total 100 Output Total 550 Balance -450 Weight 168 lb 168 lb Intake: IV 0 Right Forearm 0 Oral 100 Output: Urine 550 Condom 550 Other: # Bowel Movements 0 - Medications Active Medications: Active Medications Generic Name Dose Route Start Last Admin Trade Name Freq PRN Reason Stop Dose Admin Amlodipine Besylate 10 mg 11/04/17 10:15 11/04/17 11:08 Norvasc PO 10 mg DAILY MARCELLA Administration Artificial Tears 0 ml 11/03/17 16:02 11/04/17 11:06 Refresh Opth Soln OU 0.3 ml Q6H MARCELLA Administration Furosemide 40 mg 11/05/17 10:00 Lasix IVP DAILY MARCELLA Methylprednisolone 20 mg 11/04/17 10:02 Solu-Medrol IVP Q12 MARCELLA Nystatin 0 gm 11/02/17 14:36 11/04/17 11:10 Nystop Topical Powder TOP 1 applic BID MARCELLA Administration Pantoprazole Sodium 40 mg 11/04/17 10:00 11/04/17 11:08 Protonix Inj IVP 40 mg DAILY MARCELLA Administration - Patient Studies Lab Studies: Microbiology Studies 11/02/17 15:35 MRSA Culture (Admit) - Final Naris MRSA NOT DETECTED Lab Studies 11/04/17 11/04/17 11/04/17 Range/Units 11:05 07:27 05:20 WBC (4.5-11.0) 10^3/ul RBC (3.5-6.1) 10^6/uL Hgb (14.0-18.0) g/dL Hct (42.0-52.0) % MCV (80.0-105.0) fl MCH (25.0-35.0) pg MCHC (31.0-37.0) g/dl RDW (11.5-14.5) % Plt Count (120.0-450.0) 10^3/uL MPV (7.0-11.0) fl PT 13.6 H (9.4-12.5) SECONDS INR 1.18 H (0.93-1.08) APTT 23.8 L (25.1-36.5) Seconds Sodium (132-148) mmol/L Potassium (3.6-5.0) mmol/L Chloride (98-107) mmol/L Carbon Dioxide (21-33) mmol/L Anion Gap (10-20) BUN (7-21) mg/dL Creatinine (0.8-1.5) mg/dl Est GFR ( Amer) Est GFR (Non-Af Amer) POC Glucose (mg/dL) 172 H 149 H (65-110) mg/dL Random Glucose (70-110) mg/dL Calcium (8.4-10.5) mg/dL Phosphorus (2.5-4.5) mg/dL Magnesium (1.7-2.2) mg/dL Total Bilirubin (0.2-1.3) mg/dL AST (17-59) U/L ALT (7-56) U/L Alkaline Phosphatase (38-126) U/L Total Protein (5.8-8.3) g/dL Albumin (3.0-4.8) g/dL Globulin gm/dL Albumin/Globulin Ratio (1.1-1.8) Triglycerides (35-160) mg/dL Cholesterol (130-200) mg/dL LDL Cholesterol Direct (0-129) mg/dL HDL Cholesterol (29-60) mg/dL 11/04/17 11/04/17 11/03/17 Range/Units 05:20 05:20 23:19 WBC 25.6 H* D (4.5-11.0) 10^3/ul RBC 5.35 (3.5-6.1) 10^6/uL Hgb 16.8 (14.0-18.0) g/dL Hct 50.2 (42.0-52.0) % MCV 93.8 (80.0-105.0) fl MCH 31.4 (25.0-35.0) pg MCHC 33.5 (31.0-37.0) g/dl RDW 16.8 H (11.5-14.5) % Plt Count 348 (120.0-450.0) 10^3/uL MPV 10.0 (7.0-11.0) fl PT (9.4-12.5) SECONDS INR (0.93-1.08) APTT (25.1-36.5) Seconds Sodium 143 (132-148) mmol/L Potassium 4.0 (3.6-5.0) mmol/L Chloride 95 L (98-107) mmol/L Carbon Dioxide 30 (21-33) mmol/L Anion Gap 23 H (10-20) BUN 34 H (7-21) mg/dL Creatinine 1.4 (0.8-1.5) mg/dl Est GFR ( Amer) > 60 Est GFR (Non-Af Amer) 50 POC Glucose (mg/dL) 146 H (65-110) mg/dL Random Glucose 149 H (70-110) mg/dL Calcium 6.9 L* (8.4-10.5) mg/dL Phosphorus 4.6 H (2.5-4.5) mg/dL Magnesium 2.2 (1.7-2.2) mg/dL Total Bilirubin 1.0 (0.2-1.3) mg/dL AST 64 H D (17-59) U/L ALT 25 (7-56) U/L Alkaline Phosphatase 152 H D (38-126) U/L Total Protein 8.5 H (5.8-8.3) g/dL Albumin 4.4 (3.0-4.8) g/dL Globulin 4.1 gm/dL Albumin/Globulin Ratio 1.1 (1.1-1.8) Triglycerides 138 (35-160) mg/dL Cholesterol 212 H (130-200) mg/dL LDL Cholesterol Direct 145 H (0-129) mg/dL HDL Cholesterol 41 (29-60) mg/dL /03/15 Range/Units 17:21 WBC (4.5-11.0) 10^3/ul RBC (3.5-6.1) 10^6/uL Hgb (14.0-18.0) g/dL Hct (42.0-52.0) % MCV (80.0-105.0) fl MCH (25.0-35.0) pg MCHC (31.0-37.0) g/dl RDW (11.5-14.5) % Plt Count (120.0-450.0) 10^3/uL MPV (7.0-11.0) fl PT (9.4-12.5) SECONDS INR (0.93-1.08) APTT (25.1-36.5) Seconds Sodium (132-148) mmol/L Potassium (3.6-5.0) mmol/L Chloride (98-107) mmol/L Carbon Dioxide (21-33) mmol/L Anion Gap (10-20) BUN (7-21) mg/dL Creatinine (0.8-1.5) mg/dl Est GFR ( Amer) Est GFR (Non-Af Amer) POC Glucose (mg/dL) 163 H (65-110) mg/dL Random Glucose (70-110) mg/dL Calcium (8.4-10.5) mg/dL Phosphorus (2.5-4.5) mg/dL Magnesium (1.7-2.2) mg/dL Total Bilirubin (0.2-1.3) mg/dL AST (17-59) U/L ALT (7-56) U/L Alkaline Phosphatase (38-126) U/L Total Protein (5.8-8.3) g/dL Albumin (3.0-4.8) g/dL Globulin gm/dL Albumin/Globulin Ratio (1.1-1.8) Triglycerides (35-160) mg/dL Cholesterol (130-200) mg/dL LDL Cholesterol Direct (0-129) mg/dL HDL Cholesterol (29-60) mg/dL Laboratory Results - last 24 hr 11/03/17 11/03/17 11/04/17 17:21 23:19 05:20 WBC RBC Hgb Hct MCV MCH MCHC RDW Plt Count MPV PT INR APTT Sodium 143 Potassium 4.0 Chloride 95 L Carbon Dioxide 30 Anion Gap 23 H BUN 34 H Creatinine 1.4 Est GFR ( Amer) > 60 Est GFR (Non-Af Amer) 50 POC Glucose (mg/dL) 163 H 146 H Random Glucose 149 H Calcium 6.9 L* Phosphorus 4.6 H Magnesium 2.2 Total Bilirubin 1.0 AST 64 H D ALT 25 Alkaline Phosphatase 152 H D Total Protein 8.5 H Albumin 4.4 Globulin 4.1 Albumin/Globulin Ratio 1.1 Triglycerides 138 Cholesterol 212 H LDL Cholesterol Direct 145 H HDL Cholesterol 41 11/04/17 11/04/17 11/04/17 05:20 05:20 07:27 WBC 25.6 H* D RBC 5.35 Hgb 16.8 Hct 50.2 MCV 93.8 MCH 31.4 MCHC 33.5 RDW 16.8 H Plt Count 348 MPV 10.0 PT 13.6 H INR 1.18 H APTT 23.8 L Sodium Potassium Chloride Carbon Dioxide Anion Gap BUN Creatinine Est GFR ( Amer) Est GFR (Non-Af Amer) POC Glucose (mg/dL) 149 H Random Glucose Calcium Phosphorus Magnesium Total Bilirubin AST ALT Alkaline Phosphatase Total Protein Albumin Globulin Albumin/Globulin Ratio Triglycerides Cholesterol LDL Cholesterol Direct HDL Cholesterol 11/04/17 11:05 WBC RBC Hgb Hct MCV MCH MCHC RDW Plt Count MPV PT INR APTT Sodium Potassium Chloride Carbon Dioxide Anion Gap BUN Creatinine Est GFR ( Amer) Est GFR (Non-Af Amer) POC Glucose (mg/dL) 172 H Random Glucose Calcium Phosphorus Magnesium Total Bilirubin AST ALT Alkaline Phosphatase Total Protein Albumin Globulin Albumin/Globulin Ratio Triglycerides Cholesterol LDL Cholesterol Direct HDL Cholesterol Critical Care Progress Note - Nutrition Nutrition: Nutrition Category Date Time Status Dysphagia/Modified Consistency Diet [DIET] Diets 11/03/17 Breakfast Ordered Attending/Attestation - Attestation I have personally seen and examined this patient.: Yes I have fully participated in the care of the patient.: Yes I have reviewed all pertinent clinical information: Yes Notes (Text): 11/04/17 16:07 72 yo male with acute right MCA stroke s/p tPA with hemorrhagic conversion into affected area. Nevertheless clinically substantially improved, including motor strength. passed swallow eval, echo done. OOB to chair, PT/OT, enteral nutrition --downgrade to tele ccm time 40 min
--- NOTE | 2017-11-04 17:32 | PN ---
DATE: 11/04/2017 LOCATION: The patient is in CCU 129, bed 1. REASON FOR CONSULTATION AND FOLLOWUP: Status post CVA, positive troponin, left-sided weakness, status post tPA. BRIEF CLINICAL HISTORY: This is a 72-year-old male who had lobectomy for lung CA in past; peripheral arterial disease, status post stent in both lower extremities about 10 years ago, was on aspirin and Plavix, but the patient noncompliant and does not see any physician and has stopped Plavix and aspirin for five years, for last five years, he is not taking it; history of bipolar disorder, on anti-psychiatric medications. He is being followed by Dr. Lamar. The patient came to the Emergency Room with acute CVA with left-sided weakness and mild left facial droop. The patient got tPA. Troponin was elevated at 0.22, so the Cardiology evaluation was requested. The patient is lying flat in bed without any chest pain, shortness of breath or palpitations. PHYSICAL EXAMINATION: VITAL SIGNS: Blood pressure 167/74, earlier blood pressure was 144/76, during the night blood pressure was 126/73. Respirations 20, pulse 84, temperature 98.2. HEENT: Head is normocephalic. Eyes: Pupils are normal. Conjunctivae normal. Nose and throat normal. NECK: JVP low. Carotids equal. THORAX: AP diameter normal. LUNGS: Clear. CARDIOVASCULAR: S1 and S2. ABDOMEN: Soft. No tenderness. No organomegaly. MUSCULOSKELETAL: Left-sided weakness and mild left facial droop. LABORATORY DATA: WBC 25.6. Yesterday, WBC was 11.2, hemoglobin 16.8, hematocrit 50.2, platelets 348. Sodium 143, potassium 4, BUN 34, creatinine 1.4. Random glucose 149. First troponin was 0.22. Second troponin 0.27. DIAGNOSES: Acute cerebrovascular accident, borderline troponin elevation most likely secondary to central nervous system source, doubt any cardiac event. The patient, from cardiac point of view, asymptomatic. Bipolar disorder, history of peripheral arterial disease, status post percutaneous transluminal coronary angioplasty 10 years ago of both legs at [facility]. PLAN: As mentioned. Troponin elevation, probably [employer]IEF origin, doubt any acute cardiac event. The patient is on amlodipine 10 mg daily, methylprednisolone 20 mg IV every 12 hours, Protonix 40 IV daily, furosemide 40 IV daily. Echo was done yesterday, which showed normal chamber sizes and ejection fraction 55% to 60%, trace MR, trace pulmonary regurgitation, mild tricuspid regurgitation, RVSP 29 mmHg. No PFO while bubble study. No pericardial effusion. No thrombus or vegetation seen. We will continue to follow closely with you. Sherif Landrum MD
[2017-11-04] MEDS: MethylPREDNISolone 40 mg Vial IVP SCH (22:12)
--- NOTE | 2017-11-05 03:02 | PN ---
DATE: 11/04/2017 SUBJECTIVE: The patient was seen this evening in room 276, bed 1, having left the intensive care unit earlier today. He is status post CVA with tPA given. PHYSICAL EXAMINATION: He is awake and alert, answers appropriately with some left-sided facial weakness. Left arm is weak as well. He can raise the arm at the shoulder, flex at the elbow, but hand movement is present, but limited, he cannot give a strong hand grasp. The leg exam is very similar in that he can flex at the hip and the knee. He can wiggle his toes, but only slightly. ASSESSMENT: The patient is aware of the diagnosis of stroke and is interested in physical therapy since this is similar to the episodes he encountered from 5 years ago when he was last seen at our office. FINAL DISCHARGE DIAGNOSIS: Acute stroke. PLAN: Physical therapy and discharge plan to acute rehab. Bud Herrera MD
[2017-11-05 07:04] LABS: HEMOGLOBIN 16.8 g/dL (14.0-18.0); MEAN CELL VOLUME 93.2 fl (80.0-105.0); MEAN CORPUSCULAR HEMOGLOBIN 30.9 pg (25.0-35.0); MEAN CORPUSCULAR HGB CONC 33.2 g/dl (31.0-37.0); MEAN PLATELET VOLUME 9.3 fl (7.0-11.0); RBC 5.43 10^6/uL (3.5-6.1); RED CELL DISTRIBUTION WIDTH 16.4 % (11.5-14.5)
[2017-11-05 07:13] LABS: WHITE BLOOD COUNT 25.4 10^3/ul (4.5-11.0)
[2017-11-05 07:30] LABS: ALB/GLOB RATIO 1.1 (1.1-1.8); ALBUMIN 4.3 g/dL (3.0-4.8); CALCIUM 6.1 mg/dL (8.4-10.5)
[2017-11-05] MEDS: MethylPREDNISolone 40 mg Vial IVP SCH (10:26)
[2017-11-05] MEDS: Nystatin 100,000 Units/gm Topical Pow(15 gm) TOP SCH ×2 (10:34→20:09)
[2017-11-05] MEDS: Lubricant Eye Drops UD OU SCH ×4 (10:35→23:04)
--- NOTE | 2017-11-05 13:31 | PN ---
DATE: 11/05/2017 DAILY PROGRESS NOTE The patient is a 72-year-old male with a long history of lung carcinoma, status post right lobectomy and history of hypertension, schizophrenia, peripheral vascular disease, bipolar disorder, coronary artery disease who collapsed at home, was brought to the Emergency Room and found to have acute cerebrovascular accident. The patient received tPA, was admitted to the Intensive Care Unit. Followup CT scan revealed a right frontal intracerebral bleed. He was evaluated by neurosurgeon and was felt not to be a neurosurgical candidate. The patient has been transferred out of the Intensive Care Unit. When seen today on Telemetry floor, he was sitting up in chair. He is awake, alert and oriented. He has a pureed diet for lunch in front of him. He voices no complaints. His lungs are clear and heart is regular anteriorly. Extremities are free of cyanosis, clubbing or edema. He remains weak/flaccid on the left side, ecchymoses of the left wrist and hand are noted, status post fall at home associated with his CVA. He is afebrile. Blood pressure this morning is 133/75, heart rate is 82. White blood cell count is 25.4, it is believed this is a result of methylprednisolone which was started in the Intensive Care Unit, hemoglobin and hematocrit are 16.8 and 50.6. Sodium is 145, potassium 3.6, blood urea nitrogen is 44, creatinine is 1.5. During his hospital stay, his EKG showed regular sinus rhythm with poor R-wave progression and echocardiogram showed trace valvular disease with an ejection fraction 55%-60%. At this point, arrangements are made being made for him to possibly be transferred to an acute care facility, status post intracerebral bleed. I am changing his methylprednisolone to oral prednisone and supplementing a depressed serum calcium with oral calcium supplements. We will continue to follow the patient closely and possible transfer to an acute care rehab facility in the morning. Oskar Herrera MD
--- NOTE | 2017-11-05 14:08 | RAD ---
HISTORY: abnormal lung sounds COMPARISON: 11/02/2017 FINDINGS: LUNGS: Improving interstitial infiltrate PLEURA: No significant pleural effusion identified, no pneumothorax apparent. CARDIOVASCULAR: Normal. OSSEOUS STRUCTURES: No significant abnormalities. VISUALIZED UPPER ABDOMEN: Normal. OTHER FINDINGS: None. IMPRESSION: Improving interstitial infiltrate
--- NOTE | 2017-11-05 18:32 | PN ---
DATE: 11/05/2017 LOCATION: The patient in room 276, bed 1. REASON FOR CONSULTATION AND FOLLOWUP: Status post CVA, positive troponin, left-sided weakness, status post t-PA. SUBJECTIVE: The patient is lying flat in bed without any cardiac symptoms like chest pain, shortness of breath, or palpitation. The patient was admitted with CVA with left-sided weakness, which is still present. PHYSICAL EXAMINATION: VITAL SIGNS: Blood pressure 128/60, respirations 18, pulse 75. The patient is afebrile. HEENT: Head is normocephalic. Eyes: Pupils normal. Conjunctivae normal. Nose and throat normal. NECK: JVP low. Carotids equal. THORAX: AP diameter normal. LUNGS: Clear. CARDIOVASCULAR: S1 and S2. ABDOMEN: Soft. No tenderness. No organomegaly. Bowel sounds are normal. EXTREMITIES: No clubbing. No cyanosis. LABORATORY DATA: On 11/05/2017, WBC 25.4, hemoglobin 16.8, hematocrit 50.6, platelets 302. Today, chemistries: Sodium 145, potassium 3.6, BUN 44, creatinine 1.5, random sugar 251. DIAGNOSES: Acute cerebrovascular accident, borderline troponin elevation, most likely secondary to central nervous system, source doubt any cardiac etiology. The patient received t-PA for cerebrovascular accident. Bipolar disorder, history of peripheral arterial disease, status post percutaneous transluminal coronary angioplasty 10 years ago of both legs at [facility]. PLAN: The patient's troponin is probably related to [employer]IST origin. The patient is asymptomatic from cardiac point of view. We will continue present therapy. The patient's calcium is low, so getting calcium 600 mg p.o. daily, furosemide 40 p.o. daily, amlodipine 10 mg daily, prednisone 20 mg p.o. daily, Protonix 40 daily. We will continue present therapy. We will follow. Sherif Landrum MD
[2017-11-05 23:46] LABS: URINE BILIRUBIN NEGATIVE (NEGATIVE); URINE BLOOD SMALL (NEGATIVE); URINE GLUCOSE (UA) NEGATIVE (NEGATIVE); URINE LEUKOCYTE ESTERASE NEGATIVE Leu/uL (NEGATIVE); URINE PROTEIN 30 mg/dL (<30 mg/dL)
[2017-11-05 23:50] LABS: URINE APPEARANCE SL CLOUDY (CLEAR); URINE COLOR YELLOW (YELLOW)
[2017-11-06 00:12] LABS: URINE WBC 0 - 2 /hpf (0-6)
[2017-11-06 00:13] LABS: URINE EPITHELIAL CELLS 0 - 2 /hpf (0-5); URINE OTHER CRYSTALS SULFA /hpf
[2017-11-06] MEDS: Lubricant Eye Drops UD OU SCH ×2 (03:50→09:55)
[2017-11-06 05:56] VITALS: BP 138/61; PULSE 69; RESP 18; TEMP 97.5; O2SAT 99
[2017-11-06 06:56] LABS: BASO # 0.01 K/mm3 (0.0-2.0); BASO % 0.1 % (0.0-3.0); GRAN # 17.22 (1.4-6.5); GRAN % 86.8 % (50.0-68.0); HEMOGLOBIN 17.1 g/dL (14.0-18.0); LYMPH # 1.5 (1.2-3.4); LYMPH % 7.6 % (22.0-35.0); MEAN CORPUSCULAR HEMOGLOBIN 30.6 pg (25.0-35.0); MEAN CORPUSCULAR HGB CONC 32.9 g/dl (31.0-37.0); MEAN PLATELET VOLUME 9.8 fl (7.0-11.0); MONO # 1.1 (0.1-0.6); MONO % 5.5 % (1.0-6.0); RBC 5.59 10^6/uL (3.5-6.1); RED CELL DISTRIBUTION WIDTH 16.1 % (11.5-14.5); WHITE BLOOD COUNT 19.8 10^3/ul (4.5-11.0)
[2017-11-06] MEDS ORDERED: Pantoprazole 40 mg EC Tab PO SCH (07:30)
[2017-11-06 07:33] LABS: ALB/GLOB RATIO 1.1 (1.1-1.8); ALBUMIN 4.3 g/dL (3.0-4.8); ALT/SGPT 22 U/L (7-56); AST/SGOT 42 U/L (17-59); BLOOD UREA NITROGEN 44 mg/dL (7-21); CALCIUM 5.8 mg/dL (8.4-10.5); GFR AFRICAN-AMERICAN > 60; GFR NON-AFRICAN AMERICAN 50
--- NOTE | 2017-11-06 09:37 | CARD ---
APPROVED REPORT EKG Measurement Heart [id number] <Conclusion> Normal sinus rhythm PRWP STTW changes c/w ischemia Prolonged QTc No change
[2017-11-06] MEDS ORDERED: Potassium Chloride 20 mEq ER Tab PO ONE (09:44)
[2017-11-06] MEDS: Nystatin 100,000 Units/gm Topical Pow(15 gm) TOP SCH (09:55)
[2017-11-06] MEDS ORDERED: Cholecalciferol 1,000 INTLU TAB PO SCH (10:00)
--- NOTE | 2017-11-08 05:53 | DS ---
HISTORY OF PRESENT ILLNESS: The patient is a 72-year-old male with a long history of lung carcinoma status post lobectomy several years ago. He also has a history of hypertension, schizophrenia, peripheral vascular disease, bipolar disorder, coronary artery disease, who collapsed at home, was brought to the emergency room and was found to have an acute cerebrovascular accident. He received TPA in the emergency room, was admitted to the Intensive Care Unit. Followup CT scan revealed a subsequent right frontal intracerebral bleed. He was evaluated by a neurosurgeon and was found not to be a neurosurgical candidate. He was transferred out of the Intensive Care Unit to the telemetry floor. He was awake, alert, oriented. He was tolerating a pureed diet. He voices no complaints. PHYSICAL EXAMINATION: LUNGS: Clear. HEART: Regular. ABDOMEN: Soft, benign. EXTREMITIES: Free of cyanosis, clubbing, or edema. His left side remained flaccid, however. There was ecchymosis on his left wrist and hand status post fall at home from his cerebrovascular accident. Arrangements are made for him to be transferred to [facility]. When seen on the day of discharge, his daughter was present. She had no concerns or no further questions concerning his care or his diagnoses. So, the patient is to be discharged to [facility]. FINAL DIAGNOSES: Cerebrovascular accident status post tissue plasminogen activator, chronic obstructive pulmonary disease exacerbation, history of schizophrenia, history of bipolar disorder, history of coronary artery disease and history of carcinoma of the lung status post right lobectomy. Oskar Herrera MD
== END 2017-11-06 11:35 | DRG 61 ==
LOC: ED 11:19 → ERH 12:09 → ICU 14:22 → CCU 11-03 17:29 → 2RSO 11-04 14:53
PROVIDERS: ADMIT Internal Medicine; ATTEND Internal Medicine
PROC: 3E03317 Introduction of Other Thrombolytic into Peripheral Vein, Percutaneous Approach (ICD-10-PCS; principal; 2017-11-02)
PROC: 5A09357 Assistance with Respiratory Ventilation, Less than 24 Consecutive Hours, Continuous Positive Airway Pressure (ICD-10-PCS; 2017-11-02)
PROC: 5A09357 Assistance with Respiratory Ventilation, Less than 24 Consecutive Hours, Continuous Positive Airway Pressure (ICD-10-PCS; 2017-11-05)
DX: I63.511 Cerebral infarction due to unspecified occlusion or stenosis of right middle cerebral artery (principal); I61.1 Nontraumatic intracerebral hemorrhage in hemisphere, cortical; J44.1 Chronic obstructive pulmonary disease with (acute) exacerbation; T45.615A Adverse effect of thrombolytic drugs, initial encounter; F31.9 Bipolar disorder, unspecified; R29.712 NIHSS score 12; I73.9 Peripheral vascular disease, unspecified; E78.5 Hyperlipidemia, unspecified; I25.10 Atherosclerotic heart disease of native coronary artery without angina pectoris; F20.9 Schizophrenia, unspecified; F10.20 Alcohol dependence, uncomplicated; R26.2 Difficulty in walking, not elsewhere classified; F03.90 Unspecified dementia, unspecified severity, without behavioral disturbance, psychotic disturbance, mood disturbance, and anxiety; I11.0 Hypertensive heart disease with heart failure; I50.9 Heart failure, unspecified; Z91.19 Patient's noncompliance with other medical treatment and regimen; Z85.118 Personal history of other malignant neoplasm of bronchus and lung; Z87.891 Personal history of nicotine dependence; Z98.61 Coronary angioplasty status